=== PATIENT | female | born 1980 | race Caucasian/White ===

== ENCOUNTER 2017-06-02 00:14 | Emergency (ER) | payer BC ==
[2017-06-02] MEDS ORDERED: Sodium Chloride 0.9% 1,000 ML IV ONE (00:23)
[2017-06-02] MEDS ORDERED: Alum Hydrox/Mag Hydrox/Simeth 15 ML, Lidocaine 2% 5 ML PO ONE ×2 (00:24)
[2017-06-02] MEDS ORDERED: Pantoprazole 40 MG in Sodium Chloride 0.9% 10 ML IVPUSH ONE (00:24)
[2017-06-02] MEDS ORDERED: Ondansetron 4 MG/2 ML SDV IVPUSH ONE (00:32)
[2017-06-02 01:10] LABS: CHLORIDE,CL 107 mmol/L (98-110); SODIUM,NA 141 mmol/L (136-146)
[2017-06-02 01:19] VITALS: BP 119/72
--- NOTE | 2017-06-02 01:25 | EDM.PDOC ---
ED HPI GENERAL MEDICAL PROBLEM - General Chief Complaint: Abdominal Pain Stated Complaint: INTOXICATION Time Seen by Provider: 06/02/17 00:20 Source of Information: Reports: Patient History Limitations: Reports: No Limitations - History of Present Illness INITIAL COMMENTS - FREE TEXT/NARRATIVE: HISTORY AND PHYSICAL: History of present illness: [36-year-old female with a history of acid stomach on ranitidine occasionally, now presents to the emergency department complaining of heartburn after drinking a bottle of vodka today. Patient states she does not typically drink and has not been drinking on a daily basis. She decided to drink in excess today to alleviate her social anxiety which she then proceeded to do. Patient has burning in her stomach as she typically would when she gets gastritis. She has no exertional chest pain. He does not have shortness of breath or pleuritic pain. Patient has some mild nausea intermittently but no other complaints. Pain is not worse with movement and is confined to the epigastrium. She has no history of pancreatitis and has no right upper quadrant pain Review of systems: As per history of present illness and below otherwise all systems reviewed and negative. Past medical history: As per history of present illness and as reviewed below otherwise noncontributory. Surgical history: As per history of present illness and as reviewed below otherwise noncontributory. Social history: No reported history of drug or alcohol abuse. Family history: As per history of present illness and as reviewed below otherwise noncontributory. Physical exam: Well-appearing patient mucous membranes moist no acute distress alert and communicative. She is cooperative and appropriate with a nonfocal neurologic exam. No focal abdominal tenderness no guarding or rebound normal bowel sounds no mass or megaly no skin changes no CVA tenderness. Remainder of exam is benign HEENT: Atraumatic, normocephalic, pupils reactive, negative for conjunctival pallor or scleral icterus, mucous membranes moist, throat clear, neck supple, nontender, trachea midline. Lungs: Clear to auscultation, breath sounds equal bilaterally, chest nontender. Heart: S1S2, regular, negative for clicks, rubs, or JVD. Abdomen: Soft, nondistended, nontender. Negative for masses or hepatosplenomegaly. Negative for costovertebral tenderness. Pelvis: Stable nontender. Genitourinary: Deferred. Rectal: Deferred. Extremities: Atraumatic, negative for cords or calf pain. Neurovascular unremarkable. Neuro: Awake, alert, oriented. Cranial nerves grossly unremarkable. Cerebellum unremarkable. Motor and sensory unremarkable throughout. Exam nonfocal. Diagnostics: [Labs unremarkable] Therapeutics: [] Impression: [] Plan: [Signs and symptoms consistent with mild intoxication resolved on reevaluation after hydration. Patient has clinical evidence of gastritis which she has a long history of and for which she takes an H2 saumya. She feels improved after GI cocktail. She is well appearing and ambulating without difficulty on reevaluation prior to discharge. Vital signs unremarkable laboratory workup negative. No further workup or treatment indicated. Patient's friend present to drive her home and patient is clearly aware not to drive or operate machinery. She will follow-up with her primary care doctor and strict return precautions given Definitive disposition and diagnosis as appropriate pending reevaluation and review of above. abdomen Pain Score (Numeric/FACES): 5 - Related Data Allergies Allergy/AdvReac Type Severity Reaction Status Date / Time aspirin Allergy Cannot Verified 06/02/17 00:23 Remember naproxen Allergy Cannot Verified 06/02/17 00:23 Remember Home Meds: Home Meds Phentermine HCl 37.5 mg PO DAILY 06/02/17 [History] Past Medical History - Past Health History Medical/Surgical History: Denies Medical/Surgical History Gastrointestinal History: Reports: GERD, Irritable Bowel Syndrome Social & Family History - Family History Family Medical History: Noncontributory - Tobacco Use Smoking Status *Q: Never Smoker Years of Tobacco use: 15 Used Tobacco, but Quit: No Second Hand Smoke Exposure: Yes - Alcohol Use Days Per Week of Alcohol Use: 0 - Recreational Drug Use Recreational Drug Use: No ED ROS GENERAL - Review of Systems Review Of Systems: See Below (History of present illness) ED EXAM, GI/ABD - Physical Exam Exam: See Below (History of present illness) Course - Vital Signs Last Recorded V/S: Last Vital Signs Temp 36.4 C 06/02/17 01:19 Pulse 98 06/02/17 01:19 Resp 18 06/02/17 01:19 BP 119/72 06/02/17 01:19 Pulse Ox 97 06/02/17 01:19 - Orders/Labs/Meds Labs: Laboratory Tests 06/02/17 06/02/17 Range/Units 00:32 00:32 WBC 7.77 (4.0-11.0) K/uL RBC 4.53 (4.30-5.90) M/uL Hgb 12.9 (12.0-16.0) g/dL Hct 37.7 (36.0-46.0) % MCV 83.2 (80.0-98.0) fL MCH 28.5 (27.0-32.0) pg MCHC 34.2 (31.0-37.0) g/dL RDW Std Deviation 39.9 (28.0-62.0) fl RDW Coeff of Jaun 13 (11.0-15.0) % Plt Count 214 (150-400) K/uL MPV 9.80 (7.40-12.00) fL Neut % (Auto) 83.1 H (48.0-80.0) % Lymph % (Auto) 13.8 L (16.0-40.0) % [place]oun % (Auto) 2.8 (0.0-15.0) % Eos % (Auto) 0.0 (0.0-7.0) % Baso % (Auto) 0.3 (0.0-1.5) % Neut # (Auto) 6.5 H (1.4-5.7) K/uL Lymph # (Auto) 1.1 (0.6-2.4) K/uL [place]oun # (Auto) 0.2 (0.0-0.8) K/uL Eos # (Auto) 0.0 (0.0-0.7) K/uL Baso # (Auto) 0.0 (0.0-0.1) K/uL Nucleated RBC % 0.0 /100WBC Nucleated RBCs # 0 K/uL Sodium 141 (136-146) mmol/L Potassium 3.9 (3.5-5.1) mmol/L Chloride 107 (98-110) mmol/L Carbon Dioxide 20 L (21-31) mmol/L BUN 9 (6.0-23.0) mg/dL Creatinine 0.8 (0.6-1.5) mg/dL Est Cr Clr Drug Dosing TNP Estimated GFR (MDRD) > 60.0 ml/min Glucose 85 (60-110) mg/dL Calcium 8.7 L (8.8-10.8) mg/dL Total Bilirubin 0.3 (0.1-1.5) mg/dL AST 19 (5-40) IU/L ALT 19 (8-54) IU/L Alkaline Phosphatase 69 (40-150) Total Protein 7.1 (6.0-8.0) g/dL Albumin 4.0 (3.5-5.0) g/dL Globulin 3.1 (2.0-3.5) g/dL Albumin/Globulin Ratio 1.3 (1.3-2.8) Lipase 21 (7-80) U/L Meds: Medications Discontinued Medications Generic Name Dose Route Start Last Admin Trade Name Freq PRN Reason Stop Dose Admin Al Hydroxide/Mg Hydroxide 15 0 ml 06/02/17 00:24 06/02/17 01:18 ml/ Lidocaine HCl 5 ml PO 06/02/17 00:25 1 each ONETIME ONE Administration Sodium Chloride 1,000 mls @ 999 mls/hr 06/02/17 00:23 06/02/17 00:32 Normal Saline IV 06/02/17 01:23 999 mls/hr .Bolus ONE Administration Pantoprazole Sodium 40 mg/ 10 mls @ 300 mls/hr 06/02/17 00:24 06/02/17 00:34 Sodium Chloride IVPUSH 06/02/17 00:25 300 mls/hr NOW ONE Administration Ondansetron HCl 4 mg 06/02/17 00:32 06/02/17 00:41 Zofran IVPUSH 06/02/17 00:33 4 mg ONETIME ONE Administration Departure - Departure Time of Disposition: 01:19 Disposition: Home, Self-Care 01 Condition: Good Clinical Impression: Acute gastritis, Alcohol abuse - Discharge Information Instructions: Gastritis, Adult, [id number], Alcohol Intoxication, Easy-to- Read Forms: ED Department Discharge Additional Instructions: As you know, you suffer from gastritis. Gastritis is a condition where the stomach lining is irritated and sometimes eroded from excessive acid in the stomach. Certain things make gastritis worse, and alcohol is one of them. You' re drinking a large amount of vodka today caused you to have an attack of your gastritis. Your laboratory workup was unremarkable and we've given you IV fluids to help your hydration status. Rest and drink plenty of nonalcoholic fluids. If you do choose to drink alcohol in the future, drink only in moderation. Do not drive or operate any machinery while your under the influence of alcohol. Follow-up with your tomorrow. Take Prilosec over-the- counter medication 20 mg per day to help reduce acidity in your stomach.
== END 2017-06-02 01:39 | disposition home or self-care (01) ==
LOC: MW.ED 00:14
DX: K29.00 Acute gastritis without bleeding (principal); F10.10 Alcohol abuse, uncomplicated; K21.9 Gastro-esophageal reflux disease without esophagitis; Z79.899 Other long term (current) drug therapy; Z88.6 Allergy status to analgesic agent; Z88.8 Allergy status to other drugs, medicaments and biological substances
CPT/HCPCS: 36415; 80053; 83690; 85025; 96361; 96374; 96375; 99284; A9270; C9113; J2405; J7040; 99283

== ENCOUNTER 2018-05-08 16:49 | Emergency (ER) | payer OTHER ==
--- NOTE | 2018-05-08 17:14 | EDM.PDOC ---
ED HPI GENERAL MEDICAL PROBLEM - General Chief Complaint: DIRECTOR H[employer]PERATIONS Problem Stated Complaint: PT 10 WKS AND BLEEDING Time Seen by Provider: 05/08/18 17:05 Source of Information: Reports: Patient History Limitations: Reports: No Limitations - History of Present Illness INITIAL COMMENTS - FREE TEXT/NARRATIVE: HISTORY AND PHYSICAL: History of present illness: Patient is a 37-year-old female who presents to the emergency room with complaints of low abdominal pain and cramping with light spotting. She states that she has had intermittent abdominal pain since finding out she has been . This has been more bothersome over the past 2 days. Today she had noted some light spotting when she would wipe after using the bathroom. She has had some pelvic pressure but no dysuria. She denies any fever, chills, chest pain, shortness of breath or cough. Denies any nausea, vomiting, diarrhea, constipation. Denies any recent pelvic activity. Last menstrual period: February 28, 2018. 10 weeks gestation. P:0 Primary DIRECTOR H[employer] OPERATIONS: Lavinia DURHAM Review of systems: As per history of present illness and below otherwise all systems reviewed and negative. Past medical history: As per history of present illness and as reviewed below otherwise noncontributory. Surgical history: As per history of present illness and as reviewed below otherwise noncontributory. Social history: No reported history of drug or alcohol abuse. Family history: As per history of present illness and as reviewed below otherwise noncontributory. Physical exam: General: Well-developed and well nourished 37 female. Alert and oriented. Nontoxic appearing and in no acute distress. HEENT: Atraumatic, normocephalic, pupils equal and reactive bilaterally, negative for conjunctival pallor or scleral icterus, mucous membranes moist, throat clear, neck supple, nontender, trachea midline. No drooling or trismus noted. No meningeal signs Lungs: Clear to auscultation, breath sounds equal bilaterally, chest nontender. Heart: S1S2, regular rate and rhythm without overt murmur Abdomen: Soft, nondistended, suprapubic tenderness with palpation. Negative for masses or hepatosplenomegaly. Negative for costovertebral tenderness. Pelvis: Stable nontender. Genitourinary: Deferred Rectal: Deferred. Skin: Intact, warm, dry. No lesions or rashes noted. Extremities: Atraumatic, negative for cords or calf pain. Neurovascular unremarkable. Neuro: Awake, alert, oriented. Cranial nerves II through XII unremarkable. Cerebellum unremarkable. Motor and sensory unremarkable throughout. Exam nonfocal. Notes: Lab work is unremarkable. The ultrasound shows a single viable IUP of 10 weeks 4 days. No abnormalities are noted. No sign of hemorrhage. Today's Quant HCG 78, 887. This information was shared with the patient. Diagnostics: CBC, CMP, UA, quantitative hCG, AB/RH, Therapeutics: Declines Impression: Vaginal bleeding and Plan: 1. Pelvic rest until cleared by your OBGYN (no tampons, sex, etc...) 2. Tylenol as needed for pain management. 3. Please have your quantitative hCG repeated on 05/10/2018, todays value was 78, 887 (normal). 4. Please call the [facility] clinic on Thursday and inform them of your ER visit. They will likely want to see you that week for reevaluation. 5. Return to the ED as needed and as discussed. Definitive disposition and diagnosis as appropriate pending reevaluation and review of above. Abdomen Pain Score (Numeric/FACES): 6 - Related Data Allergies Allergy/AdvReac Type Severity Reaction Status Date / Time aspirin Allergy Abdominal Verified 05/08/18 17:06 Pain naproxen Allergy Abdominal Verified 05/08/18 17:06 Pain Home Meds: Home Meds Dimenhydrinate [Dramamine] 1 tab PO ASDIRECTED 05/08/18 [History] Past Medical History - Past Health History Medical/Surgical History: Denies Medical/Surgical History Gastrointestinal History: Reports: GERD, Irritable Bowel Syndrome Social & Family History - Family History Family Medical History: Noncontributory - Tobacco Use Smoking Status *Q: Never Smoker - Recreational Drug Use Recreational Drug Use: No ED ROS GENERAL - Review of Systems Review Of Systems: ROS reveals no pertinent complaints other than HPI. ED EXAM - Physical Exam Exam: See Below (See dictation) Course - Vital Signs Last Recorded V/S: Last Vital Signs Temp 97.8 F 05/08/18 18:16 Pulse 80 05/08/18 18:16 Resp 18 05/08/18 16:49 BP 120/73 05/08/18 18:16 Pulse Ox 98 05/08/18 18:16 - Orders/Labs/Meds Orders: Active Orders 24 hr Category Date Time Status OB Transvaginal [US] Stat Exams 05/08/18 17:11 Taken Labs: Laboratory Tests 05/08/18 05/08/18 05/08/18 Range/Units 17:15 17:25 17:25 WBC 9.48 (4.0-11.0) K/uL RBC 4.47 (4.30-5.90) M/uL Hgb 12.6 (12.0-16.0) g/dL Hct 36.2 (36.0-46.0) % MCV 81.0 (80.0-98.0) fL MCH 28.2 (27.0-32.0) pg MCHC 34.8 (31.0-37.0) g/dL RDW Std Deviation 39.8 (28.0-62.0) fl RDW Coeff of Jaun 13 (11.0-15.0) % Plt Count 238 (150-400) K/uL MPV 9.60 (7.40-12.00) fL Neut % (Auto) 74.2 (48.0-80.0) % Lymph % (Auto) 18.7 (16.0-40.0) % [place] % (Auto) 6.2 (0.0-15.0) % Eos % (Auto) 0.7 (0.0-7.0) % Baso % (Auto) 0.2 (0.0-1.5) % Neut # (Auto) 7.0 H (1.4-5.7) K/uL Lymph # (Auto) 1.8 (0.6-2.4) K/uL [place] # (Auto) 0.6 (0.0-0.8) K/uL Eos # (Auto) 0.1 (0.0-0.7) K/uL Baso # (Auto) 0.0 (0.0-0.1) K/uL Nucleated RBC % 0.0 /100WBC Nucleated RBCs # 0 K/uL Sodium 134 L (136-145) mmol/L Potassium 3.7 (3.5-5.1) mmol/L Chloride 101 (98-107) mmol/L Carbon Dioxide 24.5 (21.0-32.0) mmol/L BUN 7 (7.0-18.0) mg/dL Creatinine 0.7 (0.6-1.0) mg/dL Est Cr Clr Drug Dosing 86.18 mL/min Estimated GFR (MDRD) > 60.0 ml/min Glucose 94 (74-106) mg/dL Calcium 9.6 (8.5-10.1) mg/dL Total Bilirubin 0.2 (0.2-1.0) mg/dL AST 11 L (15-37) IU/L ALT 20 (14-63) IU/L Alkaline Phosphatase 63 (46-116) U/L Total Protein 7.6 (6.4-8.2) g/dL Albumin 3.4 (3.4-5.0) g/dL Globulin 4.2 H (2.0-3.5) g/dL Albumin/Globulin Ratio 0.8 L (1.3-2.8) HCG, Quant 88037.0 mIU/mL Urine Color YELLOW Urine Appearance CLEAR Urine pH 5.5 (5.0-8.0) Ur Specific Dieterich 1.025 (1.001-1.035) Urine Protein NEGATIVE (NEGATIVE) mg/dL Urine Glucose (UA) NEGATIVE (NEGATIVE) mg/dL Urine Ketones NEGATIVE (NEGATIVE) mg/dL Urine Occult Blood NEGATIVE (NEGATIVE) Urine Nitrite NEGATIVE (NEGATIVE) Urine Bilirubin NEGATIVE (NEGATIVE) Urine Urobilinogen 0.2 (<2.0) EU/dL Ur Leukocyte Esterase NEGATIVE (NEGATIVE) Urine RBC 0-1 (0-2/HPF) Urine WBC 0-1 (0-5/HPF) Ur Epithelial Cells OCCASIONAL (NONE-FEW) Urine Bacteria RARE (NEGATIVE) Blood Type 05/08/18 Range/Units 17:25 WBC (4.0-11.0) K/uL RBC (4.30-5.90) M/uL Hgb (12.0-16.0) g/dL Hct (36.0-46.0) % MCV (80.0-98.0) fL MCH (27.0-32.0) pg MCHC (31.0-37.0) g/dL RDW Std Deviation (28.0-62.0) fl RDW Coeff of Jaun (11.0-15.0) % Plt Count (150-400) K/uL MPV (7.40-12.00) fL Neut % (Auto) (48.0-80.0) % Lymph % (Auto) (16.0-40.0) % [place] % (Auto) (0.0-15.0) % Eos % (Auto) (0.0-7.0) % Baso % (Auto) (0.0-1.5) % Neut # (Auto) (1.4-5.7) K/uL Lymph # (Auto) (0.6-2.4) K/uL [place] # (Auto) (0.0-0.8) K/uL Eos # (Auto) (0.0-0.7) K/uL Baso # (Auto) (0.0-0.1) K/uL Nucleated RBC % /100WBC Nucleated RBCs # K/uL Sodium (136-145) mmol/L Potassium (3.5-5.1) mmol/L Chloride (98-107) mmol/L Carbon Dioxide (21.0-32.0) mmol/L BUN (7.0-18.0) mg/dL Creatinine (0.6-1.0) mg/dL Est Cr Clr Drug Dosing mL/min Estimated GFR (MDRD) ml/min Glucose (74-106) mg/dL Calcium (8.5-10.1) mg/dL Total Bilirubin (0.2-1.0) mg/dL AST (15-37) IU/L ALT (14-63) IU/L Alkaline Phosphatase (46-116) U/L Total Protein (6.4-8.2) g/dL Albumin (3.4-5.0) g/dL Globulin (2.0-3.5) g/dL Albumin/Globulin Ratio (1.3-2.8) HCG, Quant mIU/mL Urine Color Urine Appearance Urine pH (5.0-8.0) Ur Specific Dieterich (1.001-1.035) Urine Protein (NEGATIVE) mg/dL Urine Glucose (UA) (NEGATIVE) mg/dL Urine Ketones (NEGATIVE) mg/dL Urine Occult Blood (NEGATIVE) Urine Nitrite (NEGATIVE) Urine Bilirubin (NEGATIVE) Urine Urobilinogen (<2.0) EU/dL Ur Leukocyte Esterase (NEGATIVE) Urine RBC (0-2/HPF) Urine WBC (0-5/HPF) Ur Epithelial Cells (NONE-FEW) Urine Bacteria (NEGATIVE) Blood Type B POSITIVE Departure - Departure Time of Disposition: 18:27 Disposition: Home, Self-Care 01 Clinical Impression: Vaginal bleeding during - Discharge Information Referrals: PCP,None [Primary Care Provider] - Forms: ED Department Discharge Additional Instructions: The following information is given to patients seen in the emergency department who are being discharged to home. This information is to outline your options for follow-up care. We provide all patients seen in our emergency department with a follow-up referral. The need for follow-up, as well as the timing and circumstances, are variable depending upon the specifics of your emergency department visit. If you don't have a primary care physician on staff, we will provide you with a referral. We always advise you to contact your personal physician following an emergency department visit to inform them of the circumstance of the visit and for follow-up with them and/or the need for any referrals to a consulting specialist. The emergency department will also refer you to a specialist when appropriate. This referral assures that you have the opportunity for follow-up care with a specialist. All of these measure are taken in an effort to provide you with optimal care, which includes your follow-up. Under all circumstances we always encourage you to contact your private physician who remains a resource for coordinating your care. When calling for follow-up care, please make the office aware that this follow-up is from your recent emergency room visit. If for any reason you are refused follow-up, please contact the [facility] Emergency Department at and asked to speak to the emergency department charge nurse. [facility] [address] [place] [id number] [facility] [address] [place] [id number] 1. Pelvic rest until cleared by your OBGYN (no tampons, sex, etc...) 2. Tylenol as needed for pain management. 3. Please have your quantitative hCG repeated on Thursday. 4. Please call the [facility] on Thursday and inform them of your ER visit. They will likely want to see you that week for reevaluation. 5. Return to the ED as needed and as discussed. - My Orders Last 24 Hours: My Active Orders 05/08/18 17:11 OB Transvaginal [US] Stat - Assessment/Plan Last 24 Hours: My Active Orders 05/08/18 17:11 OB Transvaginal [US] Stat
[2018-05-08 18:16] LABS: CHLORIDE,CL 101 mmol/L (98-107); SODIUM,NA 134 mmol/L (136-145)
[2018-05-08 18:58] VITALS: BP 118/82
--- NOTE | 2018-05-10 13:25 | US ---
EXAM DATE: 05/08/18 PATIENT'S AGE: 37 Patient: MATTHEW HUERTA Facility: [place], [place] Site . Site : [id number] Study: US OB Pelvis [id number] 6:09:15 PM Ordering Physician: Doctor Jaimes Final Report: INDICATION: with bleeding and cramping TECHNIQUE: Ultrasound OB pelvis transvaginal. Real-time delgadillo-scale imaging of the pelvis was performed. COMPARISON: None FINDINGS: Sonographic imaging demonstrates a single living intrauterine gestation. The embryo demonstrates a regular cardiac rate measuring 154 beats per minute. The embryo`s crown rump length measurement of 3.79 cm corresponds to a gestational age of 10 weeks 4 days with a sonographic due date of November 30, 2018. There is a normal appearing yolk sac. There are no gross abnormalities noted within the embryo at this early state of development. The placenta has not yet developed. There is no sign of perigestational hemorrhage. The ovaries are of normal size. There are no suspicious fluid collections noted in the cul-de-sac. IMPRESSION: Single viable intrauterine 10 weeks 4 days. No abnormalities seen. No sign of hemorrhage. Dictated by Severiano Frzaier MD @ May 08 2018 6:10PM (Electronic Signature) Report Signed by Proxy. AVLIN
== END 2018-05-08 18:39 | disposition home or self-care (01) ==
LOC: MW.ED 16:49
DX: O20.9 Hemorrhage in early pregnancy, unspecified (principal); Z3A.10 10 weeks gestation of pregnancy; Z79.899 Other long term (current) drug therapy
CPT/HCPCS: 36415; 76817; 76817-26; 80053; 81001; 84702; 85025; 86900; 86901; 99284

== ENCOUNTER 2018-11-08 11:16 | Inpatient (IN) | payer OTHER ==
[2018-11-08] MEDS ORDERED: ceFAZolin 2 GM in Premix Bag 1 BAG IV ONE (11:24)
[2018-11-08] MEDS ORDERED: Citric Acid/Sodium Citrate Solution 30 ML Cup PO ONE (11:24)
[2018-11-08] MEDS ORDERED: Sodium Chloride 0.9% 2.5 ML Syringe FLUSH PRN (11:24)
[2018-11-08] MEDS ORDERED: Sodium Chloride 0.9% 10 ML Syringe FLUSH PRN (11:24)
[2018-11-08] MEDS ORDERED: Sodium Chloride 0.9% 10 ML SDV IV PRN (11:24)
[2018-11-08] MEDS ORDERED: Oxytocin/0.9 % Sodium Chloride 30 UNIT/500 ML BAG IV SCH (11:30)
[2018-11-08] MEDS: Lactated Ringers 1,000 ML IV SCH ×2 (12:05→12:55)
[2018-11-08] MEDS ORDERED: Magnesium Sulfate/Water 4 GM in Premix Bag 1 BAG IV ONE (12:15)
[2018-11-08] MEDS ORDERED: Calcium Gluconate 10% 1 GM/10 ML SDV IV PRN (12:15)
[2018-11-08] MEDS: Magnesium Sulfate/Water 20 GM/500 ML BAG IV SCH (12:45)
--- NOTE | 2018-11-08 12:46 | PCM.PREANE ---
Preanesthetic Assessment - Anesthesia/Transfusion/Family Hx Anesthesia History: Prior Anesthesia Without Reaction Family History of Anesthesia Reaction: No Transfusion History: No Prior Transfusion(s) Type of Transfusion Reactions: Reports: Unknown Intubation History: Unknown - Review of Systems General: No Symptoms Pulmonary: No Symptoms Cardiovascular: No Symptoms Gastrointestinal: No Symptoms Neurological: No Symptoms Other: Reports: None - Physical Assessment Height: 1.57 m Weight: 97.069 kg ASA Class: 2 Mental Status: Alert & Oriented x3 Dentition: Reports: Normal Dentition, Dentures Thyro-Mental Finger Breadths: 3 Mouth Opening Finger Breadths: 3 ROM/Head Extension: Full Lungs: Clear to Auscultation, Normal Respiratory Effort Cardiovascular: Regular Rate, Regular Rhythm - Lab Values: Laboratory Last Values WBC 10.73 K/uL (4.0-11.0) 11/08/18 11:57 RBC 4.23 M/uL (4.30-5.90) L 11/08/18 11:57 Hgb 11.5 g/dL (12.0-16.0) L 11/08/18 11:57 Hct 34.1 % (36.0-46.0) L 11/08/18 11:57 MCV 80.6 fL (80.0-98.0) 11/08/18 11:57 MCH 27.2 pg (27.0-32.0) 11/08/18 11:57 MCHC 33.7 g/dL (31.0-37.0) 11/08/18 11:57 RDW Std Deviation 43.2 fl (28.0-62.0) 11/08/18 11:57 RDW Coeff of Jaun 15 % (11.0-15.0) 11/08/18 11:57 Plt Count 194 K/uL (150-400) 11/08/18 11:57 MPV 11.40 fL (7.40-12.00) 11/08/18 11:57 Nucleated RBC % 0.0 /100WBC 11/08/18 11:57 Nucleated RBCs # 0 K/uL 11/08/18 11:57 - Allergies Allergies/Adverse Reactions: Allergies Allergy/AdvReac Type Severity Reaction Status Date / Time aspirin Allergy Abdominal Verified 11/06/18 17:42 Pain naproxen Allergy Abdominal Verified 11/06/18 17:42 Pain - Blood Blood Available: No - Anesthesia Plan Pre-Op Medication Ordered: None - Acknowledgements Anesthesia Type Planned: Spinal Pt an Appropriate Candidate for the Planned Anesthesia: Yes Alternatives and Risks of Anesthesia Discussed w Pt/Guardian: Yes Pt/Guardian Understands and Agrees with Anesthesia Plan: Yes PreAnesthesia Questionnaire - Past Health History Medical/Surgical History: Denies Medical/Surgical History HEENT History: Reports: None Other HEENT History: Wears contacts/glasses Cardiovascular History: Reports: None Respiratory History: Reports: None Gastrointestinal History: Reports: Other (See Below) Other Gastrointestinal History: Cholestasis Genitourinary History: Reports: None SPECIAL EVENTS DRIVER History: Reports: None, Musculoskeletal History: Reports: Other (See Below) (fell few days ago, ribs on the right side hurt- we will do x-ray after the baby is delivered) Neurological History: Reports: None, Headaches, Chronic Psychiatric History: Reports: None Endocrine/Metabolic History: Reports: Other (See Below) (preeclampsia) Hematologic History: Reports: None Immunologic History: Reports: None Oncologic (Cancer) History: Reports: None Dermatologic History: Reports: None - Infectious Disease History Infectious Disease History: Reports: Chicken Pox, Influenza - Past Surgical History Head Surgeries/Procedures: Reports: None HEENT Surgical History: Reports: None Cardiovascular Surgical History: Reports: None Respiratory Surgical History: Reports: None GI Surgical History: Reports: None, Colonoscopy Female Surgical History: Reports: None Endocrine Surgical History: Reports: None Neurological Surgical History: Reports: None Musculoskeletal Surgical History: Reports: None Oncologic Surgical History: Reports: None Dermatological Surgical History: Reports: None - SUBSTANCE USE Smoking Status *Q: Former Smoker Tobacco Use Within Last Twelve Months: No Second Hand Smoke Exposure: No Recreational Drug Use History: No - HOME MEDS Home Medications: Home Meds Dimenhydrinate [Dramamine] 1 tab PO ASDIRECTED 05/08/18 [History] Acetaminophen [Tylenol] 2 tab PO ASDIRECTED PRN 08/23/18 [History] PNV #116/Iron Fumarate/FA/DHA [Expecta Combo Pack] 1 tab PO DAILY 08/23 [History] Ranitidine HCl [Zantac 75] 1 tab PO ASDIRECTED 11/03/18 [History] - CURRENT (IN HOUSE) MEDS Current Meds: Current Medications Calcium Gluconate (Calcium Gluconate) 1 gm IV ASDIRECTED PRN PRN Reason: respiratory distress Lactated Ringer's (Ringers, Lactated) 1,000 mls @ 500 mls/hr IV BOLUS ALEC Oxytocin/Sodium Chloride (Oxytocin 30 Unit/500 Ml-Ns) 30 unit in 500 mls @ 250 mls/hr IV TITRATE ALEC Magnesium Sulfate (Magnesium Sulfate 20 Gm In Water 500 Ml) 20 gm in 500 mls @ 50 mls/hr IV ASDIRECTED ALEC Sodium Chloride (Saline Flush) 10 ml FLUSH ASDIRECTED PRN PRN Reason: Keep Vein Open Sodium Chloride (Saline Flush) 2.5 ml FLUSH ASDIRECTED PRN PRN Reason: Keep Vein Open Sodium Chloride (Normal Saline) 10 ml IV ASDIRECTED PRN PRN Reason: IV Use Discontinued Medications Citric Acid/Sodium Citrate (Bicitra Solution) 30 ml PO ONETIME ONE Stop: 11/08/18 11:25 Cefazolin Sodium/Dextrose 2 gm (/ Premix) 50 mls @ 100 mls/hr IV ONETIME ONE Stop: 11/08/18 11:53 Magnesium Sulfate 4 gm/ Premix 100 mls @ 300 mls/hr IV BOLUS ONE Stop: 11/08/18 12:34
[2018-11-08] MEDS ORDERED: Octyl 2-Cyanoacrylate 1 Tube ONE (13:09)
[2018-11-08] MEDS ORDERED: diphenhydrAMINE 50 MG/ML SDV IVPUSH PRN ×2 (14:22→15:17)
[2018-11-08] MEDS ORDERED: Lanolin 100% Cream 7 GM Tube TOP PRN (14:22)
[2018-11-08] MEDS ORDERED: Acetaminophen/oxyCODONE 325-5 MG Tab PO PRN ×3 (14:22→15:45)
[2018-11-08] MEDS ORDERED: Ibuprofen 800 MG Tab PO PRN (14:22)
[2018-11-08] MEDS ORDERED: Bisacodyl 10 MG Supp RECTAL PRN (14:22)
--- NOTE | 2018-11-08 14:45 | PCM.OPNOTE ---
- General Post-Op/Procedure Note Date of Surgery/Procedure: 11/08/18 Operative Procedure(s): LTCS Pre Op Diagnosis: , pre-eclampsia with severe features Post-Op Diagnosis: Post-, pre-eclampsia with severe features Anesthesia Technique: Spinal Primary Surgeon: Taylor Orantes Secondary Surgeon: Jie Hicks ([id number]) Anesthesia Provider: Alie Blake Pathology: Placenta Fluid Replacement, Intraop: 1,300 Output, Urine Amount: 80 EBL in mLs: 750 Complications: None Condition: Stable Free Text/Narrative:: Patient was admitted for a LTCS due to pre-eclampsia with severe features. A live infant was delivered at 13:53 with weight of 8lb 8oz and scores of 8/ 6/8. Patient remained stable throughout procedure and went to recovery room.
--- NOTE | 2018-11-08 14:58 | PCM.DEL ---
L & D Note - General Info Date of Service: 11/08/18 Mother's Due Date: 11/30/18 - Delivery Note Delivery Outcome: Livebirth Infant Delivery Method: Primary Nuchal Cord: None Prep: Other (Chlorhexidine) Anesthesia Type: Spinal with Morphine (Duramorph) Amniotic Fluid Description: Clear Placenta: Intact (low-lying) Cord: 3 Vessels (venous, arterial, and cord blood sent) Estimated Blood Loss: 750 Resuscitation Needed: Yes : Suctioned, Bulb Syringe, Stimulated, Warmed, Steele Used, Warmer Used Score 1 min: 8 Score 5 min: 6 Score 10 min: 8 - General Info Date of Service: 11/08/18 Functional Status: Reports: Pain Controlled - Review of Systems General: Reports: No Symptoms HEENT: Reports: No Symptoms Pulmonary: Reports: No Symptoms Cardiovascular: Reports: No Symptoms Gastrointestinal: Reports: No Symptoms Genitourinary: Reports: No Symptoms Neurological: Reports: No Symptoms. Denies: Seizure - Patient Data Vitals - Most Recent: Last Vital Signs Temp Pulse 88 11/08/18 14:46 Resp 19 11/08/18 14:46 BP 106/56 L 11/08/18 14:46 Pulse Ox 100 11/08/18 14:46 Weight - Most Recent: 214 lb I&O - Last 24 Hours: Intake & Output 11/07/18 11/08/18 11/08/18 22:59 06:59 14:59 Intake Total 1300 Output Total 80 Balance 1220 Lab Results Last 24 Hours: Laboratory Results - last 24 hr 11/08/18 11/08/18 11/08/18 Range/Units 11:57 11:57 13:53 WBC 10.73 (4.0-11.0) K/uL RBC 4.23 L (4.30-5.90) M/uL Hgb 11.5 L (12.0-16.0) g/dL Hct 34.1 L (36.0-46.0) % MCV 80.6 (80.0-98.0) fL MCH 27.2 (27.0-32.0) pg MCHC 33.7 (31.0-37.0) g/dL RDW Std Deviation 43.2 (28.0-62.0) fl RDW Coeff of Jaun 15 (11.0-15.0) % Plt Count 194 (150-400) K/uL MPV 11.40 (7.40-12.00) fL Nucleated RBC % 0.0 /100WBC Nucleated RBCs # 0 K/uL Cord ABG pH 7.280 (7.18-7.38) Cord ABG Base Excess -2 (-10--2) Cord VBG pH (7.25-7.45) Cord VBG Base Excess (-10--2) Blood Type B POSITIVE Antibody Screen NEGATIVE 11/08/18 Range/Units 13:53 WBC (4.0-11.0) K/uL RBC (4.30-5.90) M/uL Hgb (12.0-16.0) g/dL Hct (36.0-46.0) % MCV (80.0-98.0) fL MCH (27.0-32.0) pg MCHC (31.0-37.0) g/dL RDW Std Deviation (28.0-62.0) fl RDW Coeff of Jaun (11.0-15.0) % Plt Count (150-400) K/uL MPV (7.40-12.00) fL Nucleated RBC % /100WBC Nucleated RBCs # K/uL Cord ABG pH (7.18-7.38) Cord ABG Base Excess (-10--2) Cord VBG pH 7.328 (7.25-7.45) Cord VBG Base Excess -3 (-10--2) Blood Type Antibody Screen Med Orders - Current: Current Medications Bisacodyl (Dulcolax) 10 mg RECTAL ONETIME PRN PRN Reason: Constipation Calcium Gluconate (Calcium Gluconate) 1 gm IV ASDIRECTED PRN PRN Reason: respiratory distress Diphenhydramine HCl (Benadryl) 25 mg IVPUSH Q6H PRN PRN Reason: Itching or Nausea Docusate Sodium (Colace) 100 mg PO BID [facility] Emollient Ointment (Lansinoh Hpa) 0 gm TOP ASDIRECTED PRN PRN Reason: Sore Nipples Lactated Ringer's (Ringers, Lactated) 1,000 mls @ 500 mls/hr IV BOLUS [facility] Last Admin: 11/08/18 12:55 Dose: 500 mls/hr Oxytocin/Sodium Chloride (Oxytocin 30 Unit/500 Ml-Ns) 30 unit in 500 mls @ 250 mls/hr IV TITRATE [facility] Magnesium Sulfate (Magnesium Sulfate 20 Gm In Water 500 Ml) 20 gm in 500 mls @ 50 mls/hr IV ASDIRECTED [facility] Last Admin: 11/08/18 12:45 Dose: 2 gm/hr, 50 mls/hr Ibuprofen (Motrin) 800 mg PO Q8H PRN PRN Reason: mild pain or fever Ketorolac Tromethamine (Toradol) 30 mg IVPUSH Q6H [facility] Stop: 11/09/18 14:31 Ondansetron HCl (Zofran) 4 mg IVPUSH Q4H PRN PRN Reason: Nausea/Vomiting Oxycodone/Acetaminophen (Percocet 325-5 Mg) 1 tab PO Q4H PRN PRN Reason: Pain (moderate 4-6) Oxycodone/Acetaminophen (Percocet 325-5 Mg) 2 tab PO Q4H PRN PRN Reason: Pain (moderate 4-6) Sodium Chloride (Saline Flush) 10 ml FLUSH ASDIRECTED PRN PRN Reason: Keep Vein Open Sodium Chloride (Saline Flush) 2.5 ml FLUSH ASDIRECTED PRN PRN Reason: Keep Vein Open Sodium Chloride (Normal Saline) 10 ml IV ASDIRECTED PRN PRN Reason: IV Use Discontinued Medications Citric Acid/Sodium Citrate (Bicitra Solution) 30 ml PO ONETIME ONE Stop: 11/08/18 11:25 Cefazolin Sodium/Dextrose 2 gm (/ Premix) 50 mls @ 100 mls/hr IV ONETIME ONE Stop: 11/08/18 11:53 Magnesium Sulfate 4 gm/ Premix 100 mls @ 300 mls/hr IV BOLUS ONE Stop: 11/08/18 12:34 Last Admin: 11/08/18 12:44 Dose: 300 mls/hr Octyl Cyanoacrylate (Dermabond Advance) Confirm Administered Dose 1 applic .ROUTE .STK-MED ONE Stop: 11/08/18 13:10 - Exam Quality Assessment: Urine Catheter General: Alert, Oriented, Mild Distress HEENT: Pupils Equal, Pupils Reactive, EOMI Neck: Supple Lungs: Clear to Auscultation, Normal Respiratory Effort Cardiovascular: Regular Rate, Regular Rhythm GI/Abdominal Exam: Normal Bowel Sounds, Soft, Non-Tender, Other (gravid) Extremities: Normal Inspection, Pedal Edema (2+ pitting, bilaterally) Skin: Warm, Dry Psy/Mental Status: Alert, Normal Affect, Normal Mood - Problem List & Annotations (1) Preeclampsia SNOMED Code(s): 141245970 Code(s): O14.90 - UNSPECIFIED PRE-ECLAMPSIA, UNSPECIFIED TRIMESTER Status: Acute Current Visit: Yes Qualifiers: Trimester: third trimester Qualified Code(s): O14.93 - Unspecified pre- eclampsia, third trimester Annotation/Comment:: with severe features - Problem List Review Problem List Initiated/Reviewed/Updated: Yes - Assessment Assessment:: Lily is a 37 year old admitted for a primary for preeclampsia with severe features. She underwent a LTCS without complications. A live infant was born at 13:53. Baby is doing well in the nursery but required resuscitation. scores were 8/6/8.
[2018-11-08] MEDS ORDERED: Ondansetron 4 MG/2 ML SDV IVPUSH PRN (15:17)
[2018-11-08] MEDS ORDERED: fentaNYL 100 MCG/2 ML SDV IVPUSH PRN ×2 (15:17)
[2018-11-08] MEDS ORDERED: Nalbuphine 10 MG/1 ML Vial IVPUSH PRN (15:17)
[2018-11-08] MEDS ORDERED: Naloxone 0.4 MG/ML Syringe IVPUSH PRN (15:17)
[2018-11-08] MEDS ORDERED: Acetaminophen/oxyCODONE 325-7.5 MG Tab PO PRN (15:19)
[2018-11-08] MEDS: Ketorolac 30 MG/ML SDV IVPUSH SCH ×2 (19:19→21:02)
[2018-11-08] MEDS: Ondansetron 4 MG/2 ML SDV IVPUSH PRN (21:00)
[2018-11-08] MEDS: Docusate Sodium 100 MG Cap PO SCH (21:02)
--- NOTE | 2018-11-08 23:14 | OR ---
SURGEON: Taylor Orantes M.D. DATE OF PROCEDURE: 11/08/2018 PREOPERATIVE DIAGNOSES: 1. A 36 and 6/7 weeks' gestation intrauterine , suspected macrosomia. 2. Abnormal placentation. 3. Severe preeclampsia. POSTOPERATIVE DIAGNOSES: 1. A 36 and 6/7 weeks' gestation intrauterine , suspected macrosomia. 2. Abnormal placentation. 3. Severe preeclampsia. PROCEDURE: Primary low-transverse section. RETAIL SALES CLERK: Jie Padgett MS4 ANESTHESIA: Spinal. ESTIMATED BLOOD LOSS: 700 mL. FINDINGS: Liveborn male, scores 8, 6, and 8, weighing 8 pounds 8 ounces. Normal- appearing uterus, tubes, and ovaries. Placenta was very low anterior with what appeared to be an old infarction on the lower aspect of the placenta. The placenta extended beyond the transverse lower incision of the uterus. COMPLICATIONS: None known. DISPOSITION: Stable to recovery. BRIEF HISTORY: This is a 37-year-old female, G1, P0. She presents at 36 and 6/7 weeks' gestation to the clinic. She was in severe pain. She had fallen 5 days prior. She had a discrete painful area on her right mid back. She has been followed for mild preeclampsia over the past 6 weeks of with a plan for delivery actually tomorrow due to the mild preeclampsia. She has previously received steroids for lung maturity. She is known to be group B Strep positive. Today on her serial laboratory studies that have been evaluated for her preeclampsia, she did have elevated liver function studies, normal uric acid, normal platelets. She has 3+ protein and therefore decision was made to proceed today with delivery due to the severe pain that she was experiencing which may or may not be related to her fall as well as the elevated liver functions again which may or may not be related to her fall. She has chosen to proceed with a primary delivery due to a prominent blood vessel at the internal os of the cervix that has been evaluated throughout the as well as due to the suspected macrosomia, although she understands that given the early gestational age, severe macrosomia is unlikely. She does desire to proceed with a primary delivery with risks discussed including bleeding, infection, injury to bowel, bladder, blood vessels, ureters, or other organs, risk of thromboembolic event, and risk of anesthesia. Understanding all these risks, she does desire to proceed. DESCRIPTION OF PROCEDURE: With the patient in left tilt position, under adequate spinal analgesia, the abdomen was prepped with chlorhexidine and draped in usual fashion for abdominal surgery. SCDs were in place. Blum catheter was in place and she received 2 g of Ancef IV. The abdomen was appropriately draped and after appropriate time- out was held, documentation of adequate analgesia was performed. A transverse curvilinear incision was made 2 cm cephalad from the pubic symphysis through the skin and subcutaneous tissue to the fascia, which was scored transversely in the midline. The fascial incision was extended laterally using curved Bello scissors. The fascia was elevated from the underlying rectus muscle using sharp and blunt dissection. The rectus muscles were bluntly in the midline. A finger was used to enter the peritoneal cavity. The incision was extended by blunt dissection. The Grupo O retractor was placed. The visceroperitoneum over the lower uterine segment was incised to develop an adequate bladder flap. A transverse curvilinear incision was made over the lower uterine segment with a scalpel, immediately noted that at this level. The anterior placenta was still present; however, the incision was extended using blunt dissection and the amniotic membranes were noted immediately beneath the edge of the anterior placenta. Membranes were ruptured. Clear fluid was noted. The head and body were delivered via the uterine incision without difficulty. The was bulb suctioned by nose and mouth. The cord was doubly clamped and cut and the infant was handed to Dr. Davila, who was present at delivery. The was a liveborn male, initially vigorous with cry with 1 minute score of eight; however, 5 minutes score of six requiring some resuscitation and the 10 minutes score of ten. Cord blood was collected for cord ABGs as well as routine cord blood sampling. Pitocin was initiated after delivery of the infant to assist with delivery of the placenta. Cord blood has been collected for cord ABGs as well as routine cord blood sampling. The placenta was removed by manual extraction. The uterus was cleaned with a dry laparotomy tape. The cervix was opened with ring forceps. The uterine incision was closed with a running lock suture of 0 Polysorb followed by an imbricating layer of 0 Polysorb. The uterine incision was completely hemostatic. The pericolic gutters and posterior cul-de-sac were cleaned with a wet laparotomy tape. Tubes and ovaries were inspected and appeared normal. The uterine incision was again inspected, it was hemostatic. The Grupo O retractor was removed. There was some bleeding between the peritoneum and the muscle. These blood vessels were isolated and coagulated. The rectus muscle and peritoneum were loosely approximated in the midline using a running mattress suture of 0 Polysorb. The posterior aspect of the fascia was inspected and areas of bleeding that were noted were cauterized. The fascial incision was closed with a running suture of 0 Polysorb. Subcutaneous tissue was irrigated and the bleeding noted were cauterized. Skin was closed with a running subcuticular suture of 3-0 Monocryl followed by Dermabond. Final sponge, needle, and instrument counts were reported as correct. There were no known complications. The is in the nursery under observation. Mother is in recovery in good condition. PRABHA BERRIOS /[id number]
[2018-11-09] MEDS: Magnesium Sulfate/Water 20 GM/500 ML BAG IV SCH (01:29)
[2018-11-09] MEDS: Ketorolac 30 MG/ML SDV IVPUSH SCH ×3 (03:05→15:27)
[2018-11-09] MEDS: Ondansetron 4 MG/2 ML SDV IVPUSH PRN (04:38)
--- NOTE | 2018-11-09 07:31 | PCM.PNPP ---
<Jie Hicks - Last Filed: 11/09/18 07:26> - General Info Date of Service: 11/09/18 Admission Dx/Problem (Free Text): Preeclampsia with severe features, PPD1 for primary LTCS Subjective Update: Lily is PPD1 from a primary LTCS for preeclampsia with severe features. She had fallen yesterday and had a possible injury to the right rib area, after which her LFT levels were raised. The LTCS was done at 36 and 6/7 wga and the baby has since been transferred out to [place] due to respiratory difficulty. Mom states that she wants the Magnesium discontinued and also notes lightheadedness/ dizziness when she goes from sitting to standing. She has no pain. Functional Status: Reports: Pain Controlled, Ambulating, Urinating - Review of Systems General: Reports: Weakness HEENT: Reports: No Symptoms Pulmonary: Reports: No Symptoms Cardiovascular: Reports: No Symptoms Gastrointestinal: Reports: No Symptoms Genitourinary: Reports: No Symptoms Musculoskeletal: Reports: No Symptoms Skin: Reports: No Symptoms Neurological: Reports: Dizziness. Denies: Confusion, Headache - General Info Date of Service: 11/09/18 - Patient Data Vital Signs - Most Recent: Last Vital Signs Temp 97.7 F 11/09/18 06:00 Pulse 75 11/09/18 06:00 Resp 16 11/09/18 07:18 BP 108/71 11/09/18 06:00 Pulse Ox 98 11/09/18 06:00 Weight - Most Recent: 97.069 kg I&O - Last 24 Hours: Intake & Output 11/08/18 11/09/18 11/09/18 22:59 06:59 14:59 Intake Total 966 Output Total 100 565 Balance -100 401 Lab Results - Last 24 Hours: Laboratory Results - last 24 hr 11/08/18 11/08/18 11/08/18 Range/Units 11:57 11:57 13:53 WBC 10.73 (4.0-11.0) K/uL RBC 4.23 L (4.30-5.90) M/uL Hgb 11.5 L (12.0-16.0) g/dL Hct 34.1 L (36.0-46.0) % MCV 80.6 (80.0-98.0) fL MCH 27.2 (27.0-32.0) pg MCHC 33.7 (31.0-37.0) g/dL RDW Std Deviation 43.2 (28.0-62.0) fl RDW Coeff of Jaun 15 (11.0-15.0) % Plt Count 194 (150-400) K/uL MPV 11.40 (7.40-12.00) fL Nucleated RBC % 0.0 /100WBC Nucleated RBCs # 0 K/uL Cord ABG pH 7.280 (7.18-7.38) Cord ABG Base Excess -2 (-10--2) Cord VBG pH (7.25-7.45) Cord VBG Base Excess (-10--2) Blood Type B POSITIVE Antibody Screen NEGATIVE 11/08/18 Range/Units 13:53 WBC (4.0-11.0) K/uL RBC (4.30-5.90) M/uL Hgb (12.0-16.0) g/dL Hct (36.0-46.0) % MCV (80.0-98.0) fL MCH (27.0-32.0) pg MCHC (31.0-37.0) g/dL RDW Std Deviation (28.0-62.0) fl RDW Coeff of Jaun (11.0-15.0) % Plt Count (150-400) K/uL MPV (7.40-12.00) fL Nucleated RBC % /100WBC Nucleated RBCs # K/uL Cord ABG pH (7.18-7.38) Cord ABG Base Excess (-10--2) Cord VBG pH 7.328 (7.25-7.45) Cord VBG Base Excess -3 (-10--2) Blood Type Antibody Screen Med Orders - Current: Current Medications Bisacodyl (Dulcolax) 10 mg RECTAL ONETIME PRN PRN Reason: Constipation Calcium Gluconate (Calcium Gluconate) 1 gm IV ASDIRECTED PRN PRN Reason: respiratory distress Diphenhydramine HCl (Benadryl) 25 mg IVPUSH Q6H PRN PRN Reason: Itching or Nausea Last Admin: 11/09/18 06:05 Dose: 25 mg Diphenhydramine HCl (Benadryl) 25 mg IVPUSH Q4H PRN PRN Reason: Itching Stop: 11/09/18 15:17 Last Admin: 11/08/18 15:55 Dose: 25 mg Docusate Sodium (Colace) 100 mg PO BID [facility] Last Admin: 11/08/18 21:02 Dose: 100 mg Emollient Ointment (Lansinoh Hpa) 0 gm TOP ASDIRECTED PRN PRN Reason: Sore Nipples Fentanyl (Sublimaze) 50 mcg IVPUSH Q1H PRN PRN Reason: Pain (severe 7-10) Fentanyl (Sublimaze) 50 - 100 mcg IVPUSH Q1H PRN PRN Reason: Breakthrough Pain Lactated Ringer's (Ringers, Lactated) 1,000 mls @ 500 mls/hr IV BOLUS [facility] Last Admin: 11/08/18 12:55 Dose: 500 mls/hr Oxytocin/Sodium Chloride (Oxytocin 30 Unit/500 Ml-Ns) 30 unit in 500 mls @ 250 mls/hr IV TITRATE [facility] Magnesium Sulfate (Magnesium Sulfate 20 Gm In Water 500 Ml) 20 gm in 500 mls @ 50 mls/hr IV ASDIRECTED [facility] Last Admin: 11/09/18 01:29 Dose: 2 gm/hr, 50 mls/hr Ibuprofen (Motrin) 800 mg PO Q8H PRN PRN Reason: mild pain or fever Ketorolac Tromethamine (Toradol) 30 mg IVPUSH Q6H [facility] Stop: 11/09/18 14:31 Last Admin: 11/09/18 03:05 Dose: 30 mg Nalbuphine HCl (Nubain) 5 mg IVPUSH ASDIRECTED PRN PRN Reason: Itching Naloxone HCl (Narcan) 0.1 mg IVPUSH ONETIME PRN PRN Reason: Respiratory Depression Stop: 11/09/18 15:17 Ondansetron HCl (Zofran) 4 mg IVPUSH Q4H PRN PRN Reason: Nausea/Vomiting Last Admin: 11/09/18 04:38 Dose: 4 mg Ondansetron HCl (Zofran) 4 mg IVPUSH Q6H PRN PRN Reason: Nausea Oxycodone/Acetaminophen (Percocet 325-5 Mg) 1 tab PO Q4H PRN PRN Reason: Pain (moderate 4-6) Oxycodone/Acetaminophen (Percocet 325-5 Mg) 2 tab PO Q4H PRN PRN Reason: Pain (moderate 4-6) Oxycodone/Acetaminophen (Percocet 325-5 Mg) 2 tab PO Q6H PRN PRN Reason: Pain (moderate 4-6) Oxycodone/Acetaminophen (Percocet 325-5 Mg) 1 tab PO Q4H PRN PRN Reason: Breakthrough Pain Sodium Chloride (Saline Flush) 10 ml FLUSH ASDIRECTED PRN PRN Reason: Keep Vein Open Sodium Chloride (Saline Flush) 2.5 ml FLUSH ASDIRECTED PRN PRN Reason: Keep Vein Open Sodium Chloride (Normal Saline) 10 ml IV ASDIRECTED PRN PRN Reason: IV Use Discontinued Medications Citric Acid/Sodium Citrate (Bicitra Solution) 30 ml PO ONETIME ONE Stop: 11/08/18 11:25 Last Admin: 11/08/18 19:19 Dose: Not Given Cefazolin Sodium/Dextrose 2 gm (/ Premix) 50 mls @ 100 mls/hr IV ONETIME ONE Stop: 11/08/18 11:53 Last Admin: 11/08/18 19:18 Dose: Not Given Magnesium Sulfate 4 gm/ Premix 100 mls @ 300 mls/hr IV BOLUS ONE Stop: 11/08/18 12:34 Last Admin: 11/08/18 12:44 Dose: 300 mls/hr Octyl Cyanoacrylate (Dermabond Advance) Confirm Administered Dose 1 applic .ROUTE .STK-MED ONE Stop: 11/08/18 13:10 Last Admin: 11/08/18 19:19 Dose: Not Given Oxycodone/Acetaminophen (Percocet 325-7.5 Mg) 1 tab PO Q4H PRN PRN Reason: Breakthrough Pain - Interaction Infant Disposition, : baby transferred to [place] Interaction: Not Applicable Infant Feeding: Other (see below) (baby transferred to [place]) Support Person: Significant Other (nobody present currently) - Recovery Exam Fundal Tone: Firm Fundal Level: 1 Fingerbreadths Below Umbilicus Fundal Placement: Midline Lochia Amount: Scant Lochia Color: Rubra/Red Perineum Description: Intact, Minimal Bruising/Swelling Episiotomy/Laceration: None (LTCS incision site nonerythematous, dry) Bladder Status: Voiding Urinary Elimination: Voided - Exam General: Alert, Oriented, Cooperative, No Acute Distress HEENT: Pupils Equal, Pupils Reactive, EOMI Neck: Supple Lungs: Clear to Auscultation, Normal Respiratory Effort Cardiovascular: Regular Rate, Regular Rhythm GI/Abdominal Exam: Normal Bowel Sounds, Soft, Non-Tender, No Distention Extremities: Normal Inspection, Normal Range of Motion, Pedal Edema (trace) Skin: Warm, Dry, Intact Wound/Incisions: Healing Well Neurological: Normal Speech, Strength Equal Bilateral, Reflexes Equal Bilateral (hyperreflexic bilaterally at patellar reflex ) Psy/Mental Status: Alert, Depressed, Agitated - Problem List & Annotations (1) Preeclampsia SNOMED Code(s): 343500075 Code(s): O14.90 - UNSPECIFIED PRE-ECLAMPSIA, UNSPECIFIED TRIMESTER Status: Acute Current Visit: Yes Qualifiers: Trimester: third trimester Qualified Code(s): O14.93 - Unspecified pre- eclampsia, third trimester Annotation/Comment:: with severe features (2) Fall SNOMED Code(s): 6790992, 296727098 Code(s): W19.XXXA - UNSPECIFIED FALL, INITIAL ENCOUNTER Status: Acute Current Visit: Yes Onset Date: 11/08/18 Annotation/Comment:: occurred prior to admission - Problem List Review Problem List Initiated/Reviewed/Updated: Yes - Assessment Assessment:: Lily is a 37 year old admitted for a primary for preeclampsia with severe features. She underwent a LTCS without complications. A live was born at 13:53. Baby is doing well in the nursery but required resuscitation. scores were 8/6/8. - Plan Plan:: Preeclampsia with severe features-- continue with Magnesium drip for 24 hours total. Repeat patient's LFTs today to check if still elevated. Fall/rib injury-- obtain CXR today to evaluate after fall yesterday prior to hospitalization. PPD1-- obtain normal labs and continue to monitor vital signs <Taylor Orantes - Last Filed: 11/09/18 08:30> - Patient Data Vital Signs - Most Recent: Last Vital Signs Temp 36.3 C 11/09/18 07:00 Pulse 72 11/09/18 07:00 Resp 16 11/09/18 07:18 BP 116/66 11/09/18 07:00 Pulse Ox 97 11/09/18 07:00 I&O - Last 24 Hours: Intake & Output 11/08/18 11/09/18 11/09/18 22:59 06:59 14:59 Intake Total 966 Output Total 100 565 Balance -100 401 Lab Results - Last 24 Hours: Laboratory Results - last 24 hr 11/08/18 11/08/18 11/08/18 Range/Units 11:57 11:57 13:53 WBC 10.73 (4.0-11.0) K/uL RBC 4.23 L (4.30-5.90) M/uL Hgb 11.5 L (12.0-16.0) g/dL Hct 34.1 L (36.0-46.0) % MCV 80.6 (80.0-98.0) fL MCH 27.2 (27.0-32.0) pg MCHC 33.7 (31.0-37.0) g/dL RDW Std Deviation 43.2 (28.0-62.0) fl RDW Coeff of Jaun 15 (11.0-15.0) % Plt Count 194 (150-400) K/uL MPV 11.40 (7.40-12.00) fL Nucleated RBC % 0.0 /100WBC Nucleated RBCs # 0 K/uL Cord ABG pH 7.280 (7.18-7.38) Cord ABG Base Excess -2 (-10--2) Cord VBG pH (7.25-7.45) Cord VBG Base Excess (-10--2) Blood Type B POSITIVE Antibody Screen NEGATIVE 11/08/18 11/09/18 Range/Units 13:53 07:40 WBC (4.0-11.0) K/uL RBC (4.30-5.90) M/uL Hgb 10.3 L (12.0-16.0) g/dL Hct 31.2 L (36.0-46.0) % MCV (80.0-98.0) fL MCH (27.0-32.0) pg MCHC (31.0-37.0) g/dL RDW Std Deviation (28.0-62.0) fl RDW Coeff of Jaun (11.0-15.0) % Plt Count (150-400) K/uL MPV (7.40-12.00) fL Nucleated RBC % /100WBC Nucleated RBCs # K/uL Cord ABG pH (7.18-7.38) Cord ABG Base Excess (-10--2) Cord VBG pH 7.328 (7.25-7.45) Cord VBG Base Excess -3 (-10--2) Blood Type Antibody Screen Med Orders - Current: Current Medications Bisacodyl (Dulcolax) 10 mg RECTAL ONETIME PRN PRN Reason: Constipation Calcium Gluconate (Calcium Gluconate) 1 gm IV ASDIRECTED PRN PRN Reason: respiratory distress Diphenhydramine HCl (Benadryl) 25 mg IVPUSH Q6H PRN PRN Reason: Itching or Nausea Last Admin: 11/09/18 06:05 Dose: 25 mg Diphenhydramine HCl (Benadryl) 25 mg IVPUSH Q4H PRN PRN Reason: Itching Stop: 11/09/18 15:17 Last Admin: 11/08/18 15:55 Dose: 25 mg Docusate Sodium (Colace) 100 mg PO BID [facility] Last Admin: 11/08/18 21:02 Dose: 100 mg Emollient Ointment (Lansinoh Hpa) 0 gm TOP ASDIRECTED PRN PRN Reason: Sore Nipples Fentanyl (Sublimaze) 50 mcg IVPUSH Q1H PRN PRN Reason: Pain (severe 7-10) Fentanyl (Sublimaze) 50 - 100 mcg IVPUSH Q1H PRN PRN Reason: Breakthrough Pain Lactated Ringer's (Ringers, Lactated) 1,000 mls @ 500 mls/hr IV BOLUS [facility] Last Admin: 11/08/18 12:55 Dose: 500 mls/hr Oxytocin/Sodium Chloride (Oxytocin 30 Unit/500 Ml-Ns) 30 unit in 500 mls @ 250 mls/hr IV TITRATE [facility] Magnesium Sulfate (Magnesium Sulfate 20 Gm In Water 500 Ml) 20 gm in 500 mls @ 50 mls/hr IV ASDIRECTED [facility] Last Admin: 11/09/18 01:29 Dose: 2 gm/hr, 50 mls/hr Ibuprofen (Motrin) 800 mg PO Q8H PRN PRN Reason: mild pain or fever Ketorolac Tromethamine (Toradol) 30 mg IVPUSH Q6H [facility] Stop: 11/09/18 14:31 Last Admin: 11/09/18 03:05 Dose: 30 mg Nalbuphine HCl (Nubain) 5 mg IVPUSH ASDIRECTED PRN PRN Reason: Itching Naloxone HCl (Narcan) 0.1 mg IVPUSH ONETIME PRN PRN Reason: Respiratory Depression Stop: 11/09/18 15:17 Ondansetron HCl (Zofran) 4 mg IVPUSH Q4H PRN PRN Reason: Nausea/Vomiting Last Admin: 11/09/18 04:38 Dose: 4 mg Ondansetron HCl (Zofran) 4 mg IVPUSH Q6H PRN PRN Reason: Nausea Oxycodone/Acetaminophen (Percocet 325-5 Mg) 1 tab PO Q4H PRN PRN Reason: Pain (moderate 4-6) Oxycodone/Acetaminophen (Percocet 325-5 Mg) 2 tab PO Q4H PRN PRN Reason: Pain (moderate 4-6) Oxycodone/Acetaminophen (Percocet 325-5 Mg) 2 tab PO Q6H PRN PRN Reason: Pain (moderate 4-6) Oxycodone/Acetaminophen (Percocet 325-5 Mg) 1 tab PO Q4H PRN PRN Reason: Breakthrough Pain Sodium Chloride (Saline Flush) 10 ml FLUSH ASDIRECTED PRN PRN Reason: Keep Vein Open Sodium Chloride (Saline Flush) 2.5 ml FLUSH ASDIRECTED PRN PRN Reason: Keep Vein Open Sodium Chloride (Normal Saline) 10 ml IV ASDIRECTED PRN PRN Reason: IV Use Discontinued Medications Citric Acid/Sodium Citrate (Bicitra Solution) 30 ml PO ONETIME ONE Stop: 11/08/18 11:25 Last Admin: 11/08/18 19:19 Dose: Not Given Cefazolin Sodium/Dextrose 2 gm (/ Premix) 50 mls @ 100 mls/hr IV ONETIME ONE Stop: 11/08/18 11:53 Last Admin: 11/08/18 19:18 Dose: Not Given Magnesium Sulfate 4 gm/ Premix 100 mls @ 300 mls/hr IV BOLUS ONE Stop: 11/08/18 12:34 Last Admin: 11/08/18 12:44 Dose: 300 mls/hr Octyl Cyanoacrylate (Dermabond Advance) Confirm Administered Dose 1 applic .ROUTE .STK-MED ONE Stop: 11/08/18 13:10 Last Admin: 11/08/18 19:19 Dose: Not Given Oxycodone/Acetaminophen (Percocet 325-7.5 Mg) 1 tab PO Q4H PRN PRN Reason: Breakthrough Pain - Problem List Review Problem List Initiated/Reviewed/Updated: Yes - My Orders Last 24 Hours: My Active Orders 11/08/18 11:24 Peripheral IV Care [RC] PRN Sodium Chloride 0.9% [Normal Saline] 10 ml IV ASDIRECTED PRN Sodium Chloride 0.9% [Saline Flush] 10 ml FLUSH ASDIRECTED PRN Sodium Chloride 0.9% [Saline Flush] 2.5 ml FLUSH ASDIRECTED PRN Resuscitation Status Routine 11/08/18 11:25 Patient Status [ADT] Routine Up ad Anjali [RC] ASDIRECTED Vital Signs [RC] PER UNIT ROUTINE Peripheral IV Insertion Adult [OM.PC] Routine Schedule Procedure [COMM] Per Unit Routine 11/08/18 11:27 Notify Provider Vital Signs [RC] PRN 11/08/18 11:30 Lactated Ringers [Ringers, Lactated] 1,000 ml IV BOLUS Oxytocin/0.9 % Sodium Chloride [Oxytocin 30 Unit/500 ML-NS] 30 unit in 500 ml IV TITRATE 11/08/18 12:15 Bedrest [RC] ASDIRECTED Communication Order [RC] PRN Communication Order [RC] PRN Height and Weight [RC] DAILY Intake and Output [RC] QSHIFT Notify Provider [RC] PRN Oxygen Therapy [RC] PRN Vital Signs [RC] ASDIRECTED Calcium Gluconate 1 gm IV ASDIRECTED PRN Magnesium Sulfate/Water [Magnesium Sulfate 20 GM in Water 500 ML] 20 gm in 500 ml IV ASDIRECTED Deep Tendon Reflexes [WOMSER] Q1H 11/08/18 12:17 Equipment to Bedside [RC] PRN Notify Provider Status Change [RC] ASDIRECTED 11/08/18 13:15 Deep Tendon Reflexes [WOMSER] Q1H 11/08/18 14:15 Deep Tendon Reflexes [WOMSER] Q1H 11/08/18 14:22 Acetaminophen/oxyCODONE [Percocet 325-5 MG] 1 tab PO Q4H PRN Acetaminophen/oxyCODONE [Percocet 325-5 MG] 2 tab PO Q4H PRN Bisacodyl [Dulcolax] 10 mg RECTAL ONETIME PRN Ibuprofen [Motrin] 800 mg PO Q8H PRN Lanolin [Lansinoh HPA] See Dose Instructions TOP ASDIRECTED PRN Ondansetron [Zofran] 4 mg IVPUSH Q4H PRN diphenhydrAMINE [Benadryl] 25 mg IVPUSH Q6H PRN Abdominal Binder [OM.PC] Routine 11/08/18 14:23 Ambulate [RC] PER UNIT ROUTINE Communication Order [RC] PER UNIT ROUTINE Communication Order [RC] PER UNIT ROUTINE Communication Order [RC] Per Unit Routine May Shower [RC] ASDIRECTED RT Incentive Spirometry [RC] Q2HWA Vital Signs [RC] PER UNIT ROUTINE Assess Lochia [WOMSER] Per Unit Routine Assess Uterine Involution [WOMSER] Per Unit Routine Breast Pump [WOMSER] Per Unit Routine Peripheral IV Discontinue [OM.PC] Routine Sequential Compression Device [OM.PC] Per Unit Routine 11/08/18 14:24 Antiembolic Devices [RC] PER UNIT ROUTINE 11/08/18 14:30 Ketorolac [Toradol] 30 mg IVPUSH Q6H 11/08/18 15:15 Deep Tendon Reflexes [WOMSER] Q1H 11/08/18 16:15 Deep Tendon Reflexes [WOMSER] Q1H 11/08/18 17:15 Deep Tendon Reflexes [WOMSER] Q1H 11/08/18 18:15 Deep Tendon Reflexes [WOMSER] Q1H 11/08/18 19:15 Deep Tendon Reflexes [WOMSER] Q1H 11/08/18 20:15 Deep Tendon Reflexes [WOMSER] Q1H 11/08/18 21:00 Docusate Sodium [Colace] 100 mg PO BID 11/08/18 21:15 Deep Tendon Reflexes [WOMSER] Q1H 11/08/18 22:15 Deep Tendon Reflexes [WOMSER] Q1H 11/08/18 23:15 Deep Tendon Reflexes [WOMSER] Q1H 11/08/18 Dinner Clear Liquid Diet [DIET] 11/09/18 00:15 Deep Tendon Reflexes [WOMSER] Q1H 11/09/18 01:15 Deep Tendon Reflexes [WOMSER] Q1H 11/09/18 02:15 Deep Tendon Reflexes [WOMSER] Q1 11/09/18 03:15 Deep Tendon Reflexes [WOMSER] Q1 11/09/18 04:15 Deep Tendon Reflexes [WOMSER] Q1 11/09/18 05:15 Deep Tendon Reflexes [WOMSER] Q1 11/09/18 06:15 Deep Tendon Reflexes [WOMSER] Q1 11/09/18 07:15 Deep Tendon Reflexes [WOMSER] Q1 11/09/18 07:40 COMPREHENSIVE METABOLIC PN,CMP [CHEM] AM MAGNESIUM [CHEM] Routine 11/09/18 08:15 Deep Tendon Reflexes [WOMSER] Q1 11/09/18 09:15 Deep Tendon Reflexes [WOMSER] [facility] 11/09/18 10:15 Deep Tendon Reflexes [WOMSER] [facility] 11/09/18 11:15 Deep Tendon Reflexes [WOMSER] [facility] 11/09/18 12:15 Deep Tendon Reflexes [WOMSER] [facility] 11/10/18 05:11 COMPREHENSIVE METABOLIC PN,CMP [CHEM] AM - Assessment Assessment:: Patient was seen and examined by me and I agree with above. Nurse last night told her to ask to have magnesium stopped, however I explained that due to severe preeclampsia with elevated liver enzymes she needs to be on magnesium for a minimum of 24 hours, she also has not had significant diuresis to this point. She denies headache or visual changes, denies shortness of breath or chest pain. I agree with exam above. Will continue magnesium until 24 hours . Baby is in [place] on 22% oxygen per mom's report. Stable.
[2018-11-09 08:50] LABS: CHLORIDE,CL 102 mmol/L (98-107); SODIUM,NA 136 mmol/L (136-145)
[2018-11-09] MEDS: Docusate Sodium 100 MG Cap PO SCH ×2 (10:57→21:04)
[2018-11-09] MEDS: Acetaminophen/oxyCODONE 325-5 MG Tab PO PRN ×2 (17:58→23:06)
[2018-11-10] MEDS: Acetaminophen/oxyCODONE 325-5 MG Tab PO PRN ×3 (02:48→10:58)
[2018-11-10 06:11] LABS: CHLORIDE,CL 106 mmol/L (98-107); SODIUM,NA 141 mmol/L (136-145)
[2018-11-10] MEDS: Docusate Sodium 100 MG Cap PO SCH (08:29)
--- NOTE | 2018-11-10 09:03 | PCM.PNPP ---
<Jie Hicks - Last Filed: 11/10/18 08:58> - General Info Date of Service: 11/10/18 Admission Dx/Problem (Free Text): Preeclampsia with severe features, LTCS Subjective Update: Lily is a 37 year old who is PP day 2 for a LTCS for preeclampsia with severe features. She reports that she has minimal pain at the site of her wound with some moderate pain at the right edge of the wound when moving. She has had stable vital signs and has no other new symptoms. Baby was transferred to [place] on day of delivery and mother reports that baby has been intubated. She plans to visit baby in [place] upon discharge. Functional Status: Reports: Pain Controlled, Tolerating Diet, Ambulating, Urinating - Review of Systems General: Reports: No Symptoms Pulmonary: Reports: No Symptoms Cardiovascular: Reports: No Symptoms Gastrointestinal: Reports: No Symptoms Genitourinary: Reports: No Symptoms Musculoskeletal: Reports: No Symptoms Skin: Reports: No Symptoms Neurological: Reports: No Symptoms Psychiatric: Reports: No Symptoms - General Info Date of Service: 11/10/18 - Patient Data Vital Signs - Most Recent: Last Vital Signs Temp 97.6 F 11/10/18 07:20 Pulse 78 11/10/18 07:20 Resp 18 11/10/18 07:20 BP 117/60 11/10/18 07:20 Pulse Ox 96 11/10/18 07:20 Weight - Most Recent: 90.6 kg Lab Results - Last 24 Hours: Laboratory Results - last 24 hr 11/10/18 Range/Units 05:07 Sodium 141 (136-145) mmol/L Potassium 3.7 (3.5-5.1) mmol/L Chloride 106 (98-107) mmol/L Carbon Dioxide 24.0 (21.0-32.0) mmol/L BUN 12 (7.0-18.0) mg/dL Creatinine 1.0 (0.6-1.0) mg/dL Est Cr Clr Drug Dosing 60.33 mL/min Estimated GFR (MDRD) > 60.0 ml/min Glucose 142 H (74-106) mg/dL Calcium 8.1 L (8.5-10.1) mg/dL Total Bilirubin 0.2 (0.2-1.0) mg/dL AST 28 (15-37) IU/L ALT 56 (14-63) IU/L Alkaline Phosphatase 263 H (46-116) U/L Total Protein 6.2 L (6.4-8.2) g/dL Albumin 1.8 L (3.4-5.0) g/dL Globulin 4.4 H (2.6-4.0) g/dL Albumin/Globulin Ratio 0.4 L (0.9-1.6) Med Orders - Current: Current Medications Bisacodyl (Dulcolax) 10 mg RECTAL ONETIME PRN PRN Reason: Constipation Diphenhydramine HCl (Benadryl) 25 mg IVPUSH Q6H PRN PRN Reason: Itching or Nausea Last Admin: 11/09/18 06:05 Dose: 25 mg Docusate Sodium (Colace) 100 mg PO BID [facility] Last Admin: 11/10/18 08:29 Dose: 100 mg Emollient Ointment (Lansinoh Hpa) 0 gm TOP ASDIRECTED PRN PRN Reason: Sore Nipples Fentanyl (Sublimaze) 50 mcg IVPUSH Q1H PRN PRN Reason: Pain (severe 7-10) Fentanyl (Sublimaze) 50 - 100 mcg IVPUSH Q1H PRN PRN Reason: Breakthrough Pain Lactated Ringer's (Ringers, Lactated) 1,000 mls @ 500 mls/hr IV BOLUS [facility] Last Admin: 11/08/18 12:55 Dose: 500 mls/hr Oxytocin/Sodium Chloride (Oxytocin 30 Unit/500 Ml-Ns) 30 unit in 500 mls @ 250 mls/hr IV TITRATE [facility] Ibuprofen (Motrin) 800 mg PO Q8H PRN PRN Reason: mild pain or fever Nalbuphine HCl (Nubain) 5 mg IVPUSH ASDIRECTED PRN PRN Reason: Itching Ondansetron HCl (Zofran) 4 mg IVPUSH Q4H PRN PRN Reason: Nausea/Vomiting Last Admin: 11/09/18 04:38 Dose: 4 mg Ondansetron HCl (Zofran) 4 mg IVPUSH Q6H PRN PRN Reason: Nausea Oxycodone/Acetaminophen (Percocet 325-5 Mg) 1 tab PO Q4H PRN PRN Reason: Pain (moderate 4-6) Oxycodone/Acetaminophen (Percocet 325-5 Mg) 2 tab PO Q4H PRN PRN Reason: Pain (moderate 4-6) Last Admin: 11/10/18 06:48 Dose: 2 tab Oxycodone/Acetaminophen (Percocet 325-5 Mg) 2 tab PO Q6H PRN PRN Reason: Pain (moderate 4-6) Oxycodone/Acetaminophen (Percocet 325-5 Mg) 1 tab PO Q4H PRN PRN Reason: Breakthrough Pain Sodium Chloride (Saline Flush) 10 ml FLUSH ASDIRECTED PRN PRN Reason: Keep Vein Open Sodium Chloride (Saline Flush) 2.5 ml FLUSH ASDIRECTED PRN PRN Reason: Keep Vein Open Sodium Chloride (Normal Saline) 10 ml IV ASDIRECTED PRN PRN Reason: IV Use Discontinued Medications Calcium Gluconate (Calcium Gluconate) 1 gm IV ASDIRECTED PRN PRN Reason: respiratory distress Citric Acid/Sodium Citrate (Bicitra Solution) 30 ml PO ONETIME ONE Stop: 11/08/18 11:25 Last Admin: 11/08/18 19:19 Dose: Not Given Diphenhydramine HCl (Benadryl) 25 mg IVPUSH Q4H PRN PRN Reason: Itching Stop: 11/09/18 15:17 Last Admin: 11/08/18 15:55 Dose: 25 mg Cefazolin Sodium/Dextrose 2 gm (/ Premix) 50 mls @ 100 mls/hr IV ONETIME ONE Stop: 11/08/18 11:53 Last Admin: 11/08/18 19:18 Dose: Not Given Magnesium Sulfate 4 gm/ Premix 100 mls @ 300 mls/hr IV BOLUS ONE Stop: 11/08/18 12:34 Last Admin: 11/08/18 12:44 Dose: 300 mls/hr Magnesium Sulfate (Magnesium Sulfate 20 Gm In Water 500 Ml) 20 gm in 500 mls @ 50 mls/hr IV ASDIRECTED [facility] Last Admin: 11/09/18 01:29 Dose: 2 gm/hr, 50 mls/hr Ketorolac Tromethamine (Toradol) 30 mg IVPUSH Q6H [facility] Stop: 11/09/18 14:31 Last Admin: 11/09/18 15:27 Dose: 30 mg Naloxone HCl (Narcan) 0.1 mg IVPUSH ONETIME PRN PRN Reason: Respiratory Depression Stop: 11/09/18 15:17 Octyl Cyanoacrylate (Dermabond Advance) Confirm Administered Dose 1 applic .ROUTE .STK-MED ONE Stop: 11/08/18 13:10 Last Admin: 11/08/18 19:19 Dose: Not Given Oxycodone/Acetaminophen (Percocet 325-7.5 Mg) 1 tab PO Q4H PRN PRN Reason: Breakthrough Pain - Interaction Infant Disposition, : baby transferred to [place] Interaction: Not Applicable Infant Feeding: Other (see below) (baby transferred to [place]; mother pumping, but notes milk supply has not come in) Support Person: Significant Other (nobody present currently) - Recovery Exam Fundal Tone: Firm Fundal Level: 2 Fingerbreadths Below Umbilicus Fundal Placement: Midline Lochia Amount: Small Lochia Color: Rubra/Red Perineum Description: Intact, Minimal Bruising/Swelling Episiotomy/Laceration: None Bladder Status: Voiding Urinary Elimination: Voided - Exam General: Alert, Oriented HEENT: Pupils Equal, Pupils Reactive, EOMI Neck: Supple Lungs: Clear to Auscultation, Normal Respiratory Effort Cardiovascular: Regular Rate, Regular Rhythm GI/Abdominal Exam: Normal Bowel Sounds, Soft, Non-Tender, No Distention Extremities: Normal Inspection, Non-Tender, No Pedal Edema, Normal Capillary Refill Skin: Warm, Dry, Intact Wound/Incisions: Healing Well Neurological: No New Focal Deficit Psy/Mental Status: Alert, Labile Mood, Depressed (tearful) - Problem List & Annotations (1) Preeclampsia SNOMED Code(s): 729996416 Code(s): O14.90 - UNSPECIFIED PRE-ECLAMPSIA, UNSPECIFIED TRIMESTER Status: Acute Current Visit: Yes Qualifiers: Trimester: third trimester Qualified Code(s): O14.93 - Unspecified pre- eclampsia, third trimester Annotation/Comment:: with severe features (2) Fall SNOMED Code(s): 0289586, 628163848 Code(s): W19.XXXA - UNSPECIFIED FALL, INITIAL ENCOUNTER Status: Acute Current Visit: Yes Onset Date: 11/08/18 Annotation/Comment:: occurred prior to admission - Problem List Review Problem List Initiated/Reviewed/Updated: Yes - Assessment Assessment:: Lily is PP day 2 for LTCS due to preeclampsia with severe features. She reports having minimal pain and is anxious to be discharged so she can go to [place] to visit baby. Patient is tearful and cried during encounter. She is pumping to feed baby, but reports she has only produced colostrum. - Plan Plan:: Preeclampsia with severe features-- vital signs have been good and stable. Follow up at 2 weeks PP for routine PP care and blood pressure check at that time. Fall/rib injury-- CXR cancelled as patient's pain resolved after delivery and has not returned. Patient to seek care if this status changes. -- continue routine PP cares. Patient will be discharged to home today if her status remains stable/continues to improve. <Taylor Orantes - Last Filed: 11/10/18 09:53> - Patient Data Vital Signs - Most Recent: Last Vital Signs Temp 36.4 C 11/10/18 07:20 Pulse 78 11/10/18 07:20 Resp 18 11/10/18 07:20 BP 117/60 11/10/18 07:20 Pulse Ox 96 11/10/18 07:20 Lab Results - Last 24 Hours: Laboratory Results - last 24 hr 11/10/18 Range/Units 05:07 Sodium 141 (136-145) mmol/L Potassium 3.7 (3.5-5.1) mmol/L Chloride 106 (98-107) mmol/L Carbon Dioxide 24.0 (21.0-32.0) mmol/L BUN 12 (7.0-18.0) mg/dL Creatinine 1.0 (0.6-1.0) mg/dL Est Cr Clr Drug Dosing 60.33 mL/min Estimated GFR (MDRD) > 60.0 ml/min Glucose 142 H (74-106) mg/dL Calcium 8.1 L (8.5-10.1) mg/dL Total Bilirubin 0.2 (0.2-1.0) mg/dL AST 28 (15-37) IU/L ALT 56 (14-63) IU/L Alkaline Phosphatase 263 H (46-116) U/L Total Protein 6.2 L (6.4-8.2) g/dL Albumin 1.8 L (3.4-5.0) g/dL Globulin 4.4 H (2.6-4.0) g/dL Albumin/Globulin Ratio 0.4 L (0.9-1.6) Med Orders - Current: Current Medications Bisacodyl (Dulcolax) 10 mg RECTAL ONETIME PRN PRN Reason: Constipation Diphenhydramine HCl (Benadryl) 25 mg IVPUSH Q6H PRN PRN Reason: Itching or Nausea Last Admin: 11/09/18 06:05 Dose: 25 mg Docusate Sodium (Colace) 100 mg PO BID [facility] Last Admin: 11/10/18 08:29 Dose: 100 mg Emollient Ointment (Lansinoh Hpa) 0 gm TOP ASDIRECTED PRN PRN Reason: Sore Nipples Fentanyl (Sublimaze) 50 mcg IVPUSH Q1H PRN PRN Reason: Pain (severe 7-10) Fentanyl (Sublimaze) 50 - 100 mcg IVPUSH Q1H PRN PRN Reason: Breakthrough Pain Lactated Ringer's (Ringers, Lactated) 1,000 mls @ 500 mls/hr IV BOLUS [facility] Last Admin: 11/08/18 12:55 Dose: 500 mls/hr Oxytocin/Sodium Chloride (Oxytocin 30 Unit/500 Ml-Ns) 30 unit in 500 mls @ 250 mls/hr IV TITRATE [facility] Ibuprofen (Motrin) 800 mg PO Q8H PRN PRN Reason: mild pain or fever Nalbuphine HCl (Nubain) 5 mg IVPUSH ASDIRECTED PRN PRN Reason: Itching Ondansetron HCl (Zofran) 4 mg IVPUSH Q4H PRN PRN Reason: Nausea/Vomiting Last Admin: 11/09/18 04:38 Dose: 4 mg Ondansetron HCl (Zofran) 4 mg IVPUSH Q6H PRN PRN Reason: Nausea Oxycodone/Acetaminophen (Percocet 325-5 Mg) 1 tab PO Q4H PRN PRN Reason: Pain (moderate 4-6) Oxycodone/Acetaminophen (Percocet 325-5 Mg) 2 tab PO Q4H PRN PRN Reason: Pain (moderate 4-6) Last Admin: 11/10/18 06:48 Dose: 2 tab Oxycodone/Acetaminophen (Percocet 325-5 Mg) 2 tab PO Q6H PRN PRN Reason: Pain (moderate 4-6) Oxycodone/Acetaminophen (Percocet 325-5 Mg) 1 tab PO Q4H PRN PRN Reason: Breakthrough Pain Sodium Chloride (Saline Flush) 10 ml FLUSH ASDIRECTED PRN PRN Reason: Keep Vein Open Sodium Chloride (Saline Flush) 2.5 ml FLUSH ASDIRECTED PRN PRN Reason: Keep Vein Open Sodium Chloride (Normal Saline) 10 ml IV ASDIRECTED PRN PRN Reason: IV Use Discontinued Medications Calcium Gluconate (Calcium Gluconate) 1 gm IV ASDIRECTED PRN PRN Reason: respiratory distress Citric Acid/Sodium Citrate (Bicitra Solution) 30 ml PO ONETIME ONE Stop: 11/08/18 11:25 Last Admin: 11/08/18 19:19 Dose: Not Given Diphenhydramine HCl (Benadryl) 25 mg IVPUSH Q4H PRN PRN Reason: Itching Stop: 11/09/18 15:17 Last Admin: 11/08/18 15:55 Dose: 25 mg Cefazolin Sodium/Dextrose 2 gm (/ Premix) 50 mls @ 100 mls/hr IV ONETIME ONE Stop: 11/08/18 11:53 Last Admin: 11/08/18 19:18 Dose: Not Given Magnesium Sulfate 4 gm/ Premix 100 mls @ 300 mls/hr IV BOLUS ONE Stop: 11/08/18 12:34 Last Admin: 11/08/18 12:44 Dose: 300 mls/hr Magnesium Sulfate (Magnesium Sulfate 20 Gm In Water 500 Ml) 20 gm in 500 mls @ 50 mls/hr IV ASDIRECTED [facility] Last Admin: 11/09/18 01:29 Dose: 2 gm/hr, 50 mls/hr Ketorolac Tromethamine (Toradol) 30 mg IVPUSH Q6H [facility] Stop: 11/09/18 14:31 Last Admin: 11/09/18 15:27 Dose: 30 mg Naloxone HCl (Narcan) 0.1 mg IVPUSH ONETIME PRN PRN Reason: Respiratory Depression Stop: 11/09/18 15:17 Octyl Cyanoacrylate (Dermabond Advance) Confirm Administered Dose 1 applic .ROUTE .STK-MED ONE Stop: 11/08/18 13:10 Last Admin: 11/08/18 19:19 Dose: Not Given Oxycodone/Acetaminophen (Percocet 325-7.5 Mg) 1 tab PO Q4H PRN PRN Reason: Breakthrough Pain - Problem List Review Problem List Initiated/Reviewed/Updated: Yes - My Orders Last 24 Hours: My Active Orders 11/09/18 Lunch Regular Diet [DIET] - Assessment Assessment:: Patient was seen and examined by me and I agree with above. She was appropriate from a mood standpoint when I visited with her. Discussed normal mood changes, vs depression. She will call with any concerns prior to her 2 week appt.
[2018-11-10 12:20] VITALS: BP 123/57
== END 2018-11-10 12:40 | disposition home or self-care (01) | DRG 788 ==
LOC: MW.OB 11:16 → MW.MS 11-09 17:14
PROVIDERS: ADMIT Obstetrics & Gynecology; ATTEND Obstetrics & Gynecology
PROC: 6A550ZT Pheresis of Cord Blood Stem Cells, Single (ICD-10-PCS; principal; 2018-11-08)
PROC: 10D00Z1 Extraction of Products of Conception, Low, Open Approach (ICD-10-PCS; principal; 2018-11-08)
DX: O14.14 Severe pre-eclampsia complicating childbirth (principal); O99.824 Streptococcus B carrier state complicating childbirth; Z37.0 Single live birth; Z3A.36 36 weeks gestation of pregnancy; Z88.8 Allergy status to other drugs, medicaments and biological substances; Z87.891 Personal history of nicotine dependence; O44.43 Low lying placenta NOS or without hemorrhage, third trimester; O75.89 Other specified complications of labor and delivery; R94.5 Abnormal results of liver function studies
CPT/HCPCS: 36415; 59025; 80053; 81003; 82803; 83735; 84550; 85014; 85018; 85027; 86850; 86900; 86901; 88309; A9270-GY; J1200; J1885; J2270; J2370; J2405; J2590; J2704; J3475; J7120

== ENCOUNTER 2018-12-15 19:19 | Emergency (ER) | payer OTHER ==
--- NOTE | 2018-12-15 19:24 | EDM.PDOC ---
<Shannon Chavez - Last Filed: 12/15/18 21:50> ED HPI GENERAL MEDICAL PROBLEM - General Chief Complaint: Abdominal Pain Stated Complaint: PAIN IN BACK, ABDOMEN PAIN Time Seen by Provider: 12/15/18 19:21 Source of Information: Reports: Patient History Limitations: Reports: No Limitations - History of Present Illness INITIAL COMMENTS - FREE TEXT/NARRATIVE: HISTORY AND PHYSICAL: History of present illness: Patient is a 29-year-old female presents to the ED today with concern of right upper quadrant pain that she rates a 9 out of 10. She describes the pain as sharp and constant. Patient states she has had similar pain in the past but it hasn't gone away. She states today it has been pretty constant and is not going away. She also expresses nausea without vomiting. Patient did have a approximately 6 weeks ago but states she no longer has any vaginal bleeding and that the incision has healed properly and she has been cleared by her [employer]. Patient states she's had a decreased appetite since this pain has occurred today and she has not eaten anything as this would make her pain worse. Patient denies fever, chills, chest pain, shortness of breath, or cough. Denies headache, neck stiff ness, change in vision, syncope, or near syncope. Denies vomiting, diarrhea, constipation, or dysuria. Has not noted any blood in urine or stool. Patient denies any health history. Review of systems: As per history of present illness and below otherwise all systems reviewed and negative. Past medical history: As per history of present illness and as reviewed below otherwise noncontributory. Surgical history: As per history of present illness and as reviewed below otherwise noncontributory. Social history: See social history for further information Family history: As per history of present illness and as reviewed below otherwise noncontributory. Physical exam: General: Patient is alert, oriented, and in no acute distress. Patient sitting comfortably on exam table. HEENT: Atraumatic, normocephalic, pupils equal and reactive bilaterally, negative for conjunctival pallor or scleral icterus, mucous membranes moist, TMs normal bilaterally, throat clear, neck supple, nontender, trachea midline. No drooling or trismus noted. No meningeal signs. No hot potato voice noted. Lungs: Clear to auscultation, breath sounds equal bilaterally, chest nontender. Heart: S1S2, regular rate and rhythm without overt murmur Abdomen: Exam of abdomen is limited due to pain. Moderate to severe pain of the right upper and right lower quadrant with guarding. Soft, nondistended. Positive bowel sounds in all quadrants. Slightly hypoactive. Negative for masses or hepatosplenomegaly. Negative for costovertebral tenderness. Pelvis: Stable nontender. Genitourinary: Deferred. Rectal: Deferred. Skin: Intact, warm, dry. No lesions or rashes noted. Extremities: Atraumatic, negative for cords or calf pain. Neurovascular unremarkable. Neuro: Awake, alert, oriented. Cranial nerves II through XII unremarkable. Cerebellum unremarkable. Motor and sensory unremarkable throughout. Exam nonfocal. Notes: Dr. Fuller has assumed care of this patient and will follow all remaining diagnostics and disposition. Diagnostics: UA, urine hCG, CBC, CMP, lipase, abdominal pelvic CT, RUQ ultrasound Therapeutics: Saline, Compazine, Toradol Prescription: Impression: Right sided abdominal pain, unspecified Plan: Definitive disposition and diagnosis as appropriate pending reevaluation and review of above. Right Upper Abdomen Pain Score (Numeric/FACES): 7 - Related Data Allergies Allergy/AdvReac Type Severity Reaction Status Date / Time aspirin Allergy Abdominal Verified 12/15/18 19:27 Pain naproxen Allergy Abdominal Verified 12/15/18 19:27 Pain Home Meds: Home Meds Acetaminophen [Tylenol] 2 tab PO ASDIRECTED PRN 08/23/18 [History] PNV #116/Iron Fumarate/FA/DHA [Expecta Combo Pack] 1 tab PO DAILY 08/23 [History] Ranitidine HCl [Zantac 75] 1 tab PO ASDIRECTED 11/03/18 [History] Docusate Sodium [Colace] 100 mg PO BID cap 11/10/18 [Rx] Ibuprofen [Motrin] 800 mg PO Q8H PRN #30 tablet 11/10/18 [Rx] Escitalopram Oxalate [Lexapro] mg PO DAILY 12/15/18 [History] Past Medical History - Past Health History Medical/Surgical History: Denies Medical/Surgical History HEENT History: Reports: Other (See Below) Other HEENT History: Wears contacts/glasses Cardiovascular History: Reports: None Respiratory History: Reports: None Gastrointestinal History: Reports: Other (See Below) Other Gastrointestinal History: Cholestasis Genitourinary History: Reports: None [employer] History: Reports: None Musculoskeletal History: Reports: Other (See Below) (fell few days ago, ribs on the right side hurt- we will do x-ray after the baby is delivered) Neurological History: Reports: None, Headaches, Chronic Psychiatric History: Reports: None Endocrine/Metabolic History: Reports: Other (See Below) (preeclampsia) Hematologic History: Reports: None Immunologic History: Reports: None Oncologic (Cancer) History: Reports: None Dermatologic History: Reports: None - Infectious Disease History Infectious Disease History: Reports: Chicken Pox, Influenza - Past Surgical History Head Surgeries/Procedures: Reports: None HEENT Surgical History: Reports: None Cardiovascular Surgical History: Reports: None Respiratory Surgical History: Reports: None GI Surgical History: Reports: None, Colonoscopy Female Surgical History: Reports: None Endocrine Surgical History: Reports: None Neurological Surgical History: Reports: None Musculoskeletal Surgical History: Reports: None Oncologic Surgical History: Reports: None Dermatological Surgical History: Reports: None Social & Family History - Family History Family Medical History: Noncontributory Cardiac: Reports: Arrhythmia, Heart Failure Other Cardiac Family History: Maternal/paternal heart problems. Mother on blood thinners related to arrythmias. Respiratory: Reports: None GI: Reports: None : Reports: None OBGYN: Reports: Musculoskeletal: Reports: None Neurological: Reports: None Psychiatric: Reports: None Endocrine/Metabolic: Reports: None Hematologic: Reports: None Immunologic: Reports: None Dermatologic: Reports: None Oncologic: Reports: None - Caffeine Use Caffeine Use: Reports: Soda ED ROS GENERAL - Review of Systems Review Of Systems: ROS reveals no pertinent complaints other than HPI. ED EXAM, GI/ABD - Physical Exam Exam: See Below (See dictation) Course - Vital Signs Last Recorded V/S: Last Vital Signs Temp 36.4 C 12/15/18 19:29 Pulse 75 12/15/18 21:30 Resp 16 12/15/18 21:30 BP 115/62 12/15/18 21:30 Pulse Ox 98 12/15/18 21:30 - Orders/Labs/Meds Orders: Active Orders 24 hr Category Date Time Status Gallbladder [Abdomen Ltd] [US] Stat Exams 12/15/18 21:48 Ordered Ciprofloxacin in D5W [Cipro in D5W 400 MG/200 ML] 400 Med 12/15/18 22:09 Active mg Premix Bag 1 bag IV STAT metroNIDAZOLE/Normal Saline [Flagyl 500 MG in NS 100 ML Med 12/15/18 22:08 Active ] 500 mg Premix Bag 1 bag IV ONETIME Medication Orders Ciprofloxacin/Dextrose 400 mg/ (Premix) 200 mls @ 200 mls/hr IV STAT ONE Stop: 12/15/18 23:08 Metronidazole 500 mg/ Premix 100 mls @ 100 mls/hr IV ONETIME ONE Stop: 12/15/18 23:07 Labs: Laboratory Tests 12/15/18 12/15/18 12/15/18 Range/Units 19:36 19:36 19:54 WBC 8.96 (4.0-11.0) K/uL RBC 5.10 (4.30-5.90) M/uL Hgb 13.4 (12.0-16.0) g/dL Hct 41.4 (36.0-46.0) % MCV 81.2 (80.0-98.0) fL MCH 26.3 L (27.0-32.0) pg MCHC 32.4 (31.0-37.0) g/dL RDW Std Deviation 42.8 (28.0-62.0) fl RDW Coeff of Jaun 14 (11.0-15.0) % Plt Count 331 (150-400) K/uL MPV 10.10 (7.40-12.00) fL Neut % (Auto) 75.2 (48.0-80.0) % Lymph % (Auto) 18.3 (16.0-40.0) % Parmer % (Auto) 4.7 (0.0-15.0) % Eos % (Auto) 1.2 (0.0-7.0) % Baso % (Auto) 0.6 (0.0-1.5) % Neut # (Auto) 6.7 H (1.4-5.7) K/uL Lymph # (Auto) 1.6 (0.6-2.4) K/uL Parmer # (Auto) 0.4 (0.0-0.8) K/uL Eos # (Auto) 0.1 (0.0-0.7) K/uL Baso # (Auto) 0.1 (0.0-0.1) K/uL Nucleated RBC % 0.0 /100WBC Nucleated RBCs # 0 K/uL Sodium (136-145) mmol/L Potassium (3.5-5.1) mmol/L Chloride (98-107) mmol/L Carbon Dioxide (21.0-32.0) mmol/L BUN (7.0-18.0) mg/dL Creatinine (0.6-1.0) mg/dL Est Cr Clr Drug Dosing mL/min Estimated GFR (MDRD) ml/min Glucose (74-106) mg/dL Calcium (8.5-10.1) mg/dL Total Bilirubin (0.2-1.0) mg/dL AST (15-37) IU/L ALT (14-63) IU/L Alkaline Phosphatase (46-116) U/L Total Protein (6.4-8.2) g/dL Albumin (3.4-5.0) g/dL Globulin (2.6-4.0) g/dL Albumin/Globulin Ratio (0.9-1.6) Lipase (73-393) U/L Urine Color YELLOW Urine Appearance SLT CLOUDY Urine pH 6.0 (5.0-8.0) Ur Specific Tennyson 1.025 (1.001-1.035) Urine Protein 100 H (NEGATIVE) mg/dL Urine Glucose (UA) NEGATIVE (NEGATIVE) mg/dL Urine Ketones NEGATIVE (NEGATIVE) mg/dL Urine Occult Blood MODERATE H (NEGATIVE) Urine Nitrite NEGATIVE (NEGATIVE) Urine Bilirubin SMALL H (NEGATIVE) Urine Ictotest NEGATIVE Urine Urobilinogen 0.2 (<2.0) EU/dL Ur Leukocyte Esterase NEGATIVE (NEGATIVE) Urine RBC 1-2 (0-2/HPF) Urine WBC 6-8 (0-5/HPF) Ur Epithelial Cells FEW (NONE-FEW) Amorphous Sediment FEW (NEGATIVE) Urine Bacteria FEW (NEGATIVE) Urine Mucus FEW (NONE-MOD) Urine HCG, Qual NEGATIVE (NEGATIVE) 12/15/18 Range/Units 19:54 WBC (4.0-11.0) K/uL RBC (4.30-5.90) M/uL Hgb (12.0-16.0) g/dL Hct (36.0-46.0) % MCV (80.0-98.0) fL MCH (27.0-32.0) pg MCHC (31.0-37.0) g/dL RDW Std Deviation (28.0-62.0) fl RDW Coeff of Jaun (11.0-15.0) % Plt Count (150-400) K/uL MPV (7.40-12.00) fL Neut % (Auto) (48.0-80.0) % Lymph % (Auto) (16.0-40.0) % Parmer % (Auto) (0.0-15.0) % Eos % (Auto) (0.0-7.0) % Baso % (Auto) (0.0-1.5) % Neut # (Auto) (1.4-5.7) K/uL Lymph # (Auto) (0.6-2.4) K/uL Parmer # (Auto) (0.0-0.8) K/uL Eos # (Auto) (0.0-0.7) K/uL Baso # (Auto) (0.0-0.1) K/uL Nucleated RBC % /100WBC Nucleated RBCs # K/uL Sodium 138 (136-145) mmol/L Potassium 3.9 (3.5-5.1) mmol/L Chloride 102 (98-107) mmol/L Carbon Dioxide 26.1 (21.0-32.0) mmol/L BUN 10 (7.0-18.0) mg/dL Creatinine 1.0 (0.6-1.0) mg/dL Est Cr Clr Drug Dosing 60.33 mL/min Estimated GFR (MDRD) > 60.0 ml/min Glucose 117 H (74-106) mg/dL Calcium 9.1 (8.5-10.1) mg/dL Total Bilirubin 1.2 H (0.2-1.0) mg/dL AST 338 H (15-37) IU/L ALT 365 H (14-63) IU/L Alkaline Phosphatase 453 H (46-116) U/L Total Protein 8.0 (6.4-8.2) g/dL Albumin 3.7 (3.4-5.0) g/dL Globulin 4.3 H (2.6-4.0) g/dL Albumin/Globulin Ratio 0.9 (0.9-1.6) Lipase 307 (73-393) U/L Urine Color Urine Appearance Urine pH (5.0-8.0) Ur Specific Tennyson (1.001-1.035) Urine Protein (NEGATIVE) mg/dL Urine Glucose (UA) (NEGATIVE) mg/dL Urine Ketones (NEGATIVE) mg/dL Urine Occult Blood (NEGATIVE) Urine Nitrite (NEGATIVE) Urine Bilirubin (NEGATIVE) Urine Ictotest Urine Urobilinogen (<2.0) EU/dL Ur Leukocyte Esterase (NEGATIVE) Urine RBC (0-2/HPF) Urine WBC (0-5/HPF) Ur Epithelial Cells (NONE-FEW) Amorphous Sediment (NEGATIVE) Urine Bacteria (NEGATIVE) Urine Mucus (NONE-MOD) Urine HCG, Qual (NEGATIVE) Meds: Medications Generic Name Dose Route Start Last Admin Trade Name Freq PRN Reason Stop Dose Admin Ciprofloxacin/Dextrose 400 mg/ 200 mls @ 200 mls/hr 12/15/18 22:09 Premix IV 12/15/18 23:08 STAT ONE Metronidazole 500 mg/ Premix 100 mls @ 100 mls/hr 12/15/18 22:08 IV 12/15/18 23:07 ONETIME ONE Discontinued Medications Generic Name Dose Route Start Last Admin Trade Name Freq PRN Reason Stop Dose Admin Sodium Chloride 1,000 mls @ 999 mls/hr 12/15/18 19:36 12/15/18 19:54 Normal Saline IV 12/15/18 20:36 999 mls/hr BOLUS ONE Administration Prochlorperazine Edisylate 10 52 mls @ 150 mls/hr 12/15/18 19:43 12/15/18 20: 09 mg/ Sodium Chloride IV 12/15/18 20:03 150 mls/hr ONETIME ONE Administration Iopamidol 87 ml 12/15/18 21:02 12/15/18 21:02 Isovue Multipack-370 (76%) IVPUSH 12/15/18 21:03 87 ml ONETIME ONE Administration Ketorolac Tromethamine 30 mg 12/15/18 19:36 12/15/18 19:54 Toradol IVPUSH 12/15/18 19:37 30 mg ONETIME ONE Administration Prochlorperazine Edisylate Confirm 12/15/18 20:01 12/15/18 20:25 Compazine Administered 12/15/18 20:02 Not Given Dose 10 mg .ROUTE .STK-MED ONE Departure - Departure Disposition: DC/Tfer to Acute Hospital 02 Clinical Impression: Abdominal pain, Cholecystitis, Common bile duct (CBD) obstruction - Discharge Information Referrals: Indiana Chase DO [Primary Care Provider] - Forms: ED Department Discharge - My Orders Last 24 Hours: My Active Orders 12/15/18 22:08 metroNIDAZOLE/Normal Saline [Flagyl 500 MG in NS 100 ML] 500 mg Premix Bag 1 bag IV ONETIME 12/15/18 22:09 Ciprofloxacin in D5W [Cipro in D5W 400 MG/200 ML] 400 mg Premix Bag 1 bag IV STAT - Assessment/Plan Last 24 Hours: My Active Orders 12/15/18 22:08 metroNIDAZOLE/Normal Saline [Flagyl 500 MG in NS 100 ML] 500 mg Premix Bag 1 bag IV ONETIME 12/15/18 22:09 Ciprofloxacin in D5W [Cipro in D5W 400 MG/200 ML] 400 mg Premix Bag 1 bag IV STAT <Av Fuller - Last Filed: 12/15/18 22:17> Course - Vital Signs Text/Narrative:: CT demonstrated common bile duct obstruction with the common bile duct dilatation measuring 10 mm there was noted be a distal stone liver function tests are elevated patient remains nontoxic IV Cipro and Flagyl was ordered I discussed case with Dr. Garcia ER physician at [facility] except the patient she'll be transferred by ground ambulance Departure - Departure Time of Disposition: 22:17 Condition: Good
[2018-12-15] MEDS ORDERED: Sodium Chloride 0.9% 1,000 ML IV ONE (19:36)
[2018-12-15] MEDS ORDERED: Ketorolac 30 MG/ML SDV IVPUSH ONE (19:36)
[2018-12-15] MEDS ORDERED: Prochlorperazine 10 MG in Sodium Chloride 0.9% 50 ML IV ONE (19:43)
[2018-12-15] MEDS ORDERED: Prochlorperazine 10 MG/2 ML SDV ONE (20:01)
[2018-12-15 20:37] LABS: CHLORIDE,CL 102 mmol/L (98-107); SODIUM,NA 138 mmol/L (136-145)
[2018-12-15] MEDS ORDERED: Iopamidol 755 MG/ML 500 ML Multipack Bottle IVPUSH ONE (21:02)
[2018-12-15 21:44] VITALS: BP 115/62
--- NOTE | 2018-12-15 22:02 | CT ---
INDICATION: Upper quadrant pain x2 months. History of section 6 weeks prior TECHNIQUE: CT abdomen and pelvis acquired with IV contrast. 87 cc Isovue 370 COMPARISON: None FINDINGS: Lower chest: Unremarkable. Liver: Unremarkable. Spleen: Unremarkable. Pancreas: Unremarkable. Gallbladder and bile ducts: 8 millimeter obstructing calculus distal common bile duct with dilated common bile duct up to 10 millimeters. Intrahepatic biliary duct dilatation also present. Multiple dependent gallstones with mild gallbladder wall thickening and trace pericholecystic fluid. Kidneys: Unremarkable. Adrenal glands: Unremarkable. GI tract: Unremarkable. Appendix is normal. Vascular structures: Unremarkable. Lymph nodes: Unremarkable. Miscellaneous: Unremarkable. No free air or significant free fluid. Pelvic Organs: Unremarkable. Bones: Unremarkable for age. IMPRESSION: 8 millimeter obstructing calculus distal common bile duct with dilated common bile duct up to 10 millimeters and intrahepatic biliary duct dilatation. Multiple dependent gallstones with gallbladder wall thickening and trace pericholecystic fluid. Dictated by Dagoberto Coffey MD @ 12/15/2018 10:01:56 PM Please note that all CT scans at this facility use dose modulation, iterative reconstruction, and/or weight-based dosing when appropriate to reduce radiation dose to as low as reasonably achievable. Dictated by: Dagoberto Coffey MD @ 12/15/2018 22:02:03 (Electronically Signed)
[2018-12-15] MEDS ORDERED: metroNIDAZOLE/Normal Saline 500 MG in Premix Bag 1 BAG IV ONE (22:08)
[2018-12-15] MEDS ORDERED: Ciprofloxacin in D5W 400 MG in Premix Bag 1 BAG IV ONE ×2 (22:09)
== END 2018-12-15 22:46 ==
LOC: MW.ED 19:19
DX: K81.9 Cholecystitis, unspecified (principal); K83.1 Obstruction of bile duct; Z88.6 Allergy status to analgesic agent; Z88.8 Allergy status to other drugs, medicaments and biological substances; Z79.899 Other long term (current) drug therapy
CPT/HCPCS: 36415; 74177; 80053; 81001; 81025; 83690; 85025; 96365; 96367; 96375; 99285; J0744; J0780; J1885; J3490; J7040; J7050; Q9967